=== PATIENT | male | born 1935 | race Hispanic/Latino ===

== ENCOUNTER 2019-07-31 23:55 | Emergency (ER) | payer OTHER ==
[2019-08-01] MEDS ORDERED: ORPHENADRINE CITRATE 30 MG/ML ML ONE (00:35)
[2019-08-01] MEDS ORDERED: KETOROLAC TROMETHAMINE 15MG/ML ONE (00:36)
[2019-08-01 00:50] LABS: WHITE BLOOD COUNT (AUTO) 10.6 K/uL (4.8-10.8)
[2019-08-01 00:56] LABS: BASOPHILS % (AUTO) 0.3 % (0.0-5.0); CREATININE 1.4 mg/dL (0.5-1.5); EOSINOPHILS % (AUTO) 2.4 % (0.0-8.0); HEMATOCRIT 28.9 % (42-54); LYMPHOCYTES % (AUTO) 18.9 % (21.0-51.0); MEAN CORPUSCULAR HGB CONC 34.4 g/dL (32.0-36.0); MEAN CORPUSCULAR VOLUME 96.1 fL (79-99); MONOCYTES % (AUTO) 11.1 % (3.0-13.0); NEUTROPHILS % (AUTO) 67.3 % (40.0-77.0); PLATELET COUNT (AUTO) 191 K/uL (130-400); POTASSIUM 3.5 mmol/L (3.5-5.1); RED CELL DISTRIBUTION WIDTH 13.6 % (11.0-15.5)
[2019-08-01] MEDS ORDERED: METHYLPREDNISOLONE SOD SUCC 125MG/2ML VIAL ONE (01:32)
== END 2019-08-01 01:48 | disposition home or self-care (01) ==
LOC: EDH 23:55
DX: J01.90 Acute sinusitis, unspecified (principal); M50.10 Cervical disc disorder with radiculopathy, unspecified cervical region; F43.23 Adjustment disorder with mixed anxiety and depressed mood; I10 Essential (primary) hypertension; E78.00 Pure hypercholesterolemia, unspecified; Z95.1 Presence of aortocoronary bypass graft
CPT/HCPCS: 36415; 70450; 72125; 80048; 85025; 96372; 96374; 96375; 99285; J1885; J2360; J2930

== ENCOUNTER 2019-12-06 08:20 | Emergency (ER) | payer OTHER ==
[2019-12-06 09:44] LABS: BASOPHILS % (AUTO) 0.4 % (0.0-5.0); EOSINOPHILS % (AUTO) 2.9 % (0.0-8.0); HEMATOCRIT 34.2 % (42-54); LYMPHOCYTES % (AUTO) 18.3 % (21.0-51.0); MEAN CORPUSCULAR HEMOGLOBIN 29.7 pg (27.0-33.0); MEAN CORPUSCULAR HGB CONC 32.7 g/dL (32.0-36.0); MEAN CORPUSCULAR VOLUME 90.7 fL (79-99); MONOCYTES % (AUTO) 8.5 % (3.0-13.0); NEUTROPHILS % (AUTO) 69.8 % (40.0-77.0); PLATELET COUNT (AUTO) 242 K/uL (130-400); RED BLOOD CELL COUNT(AUTO) 3.77 MIL/uL (4.50-6.20); WHITE BLOOD COUNT (AUTO) 8.4 K/uL (4.8-10.8)
[2019-12-06 09:54] LABS: CREATININE 1.2 mg/dL (0.5-1.5); POTASSIUM 3.3 mmol/L (3.5-5.1)
[2019-12-06 09:56] LABS: INR 1.03 (0.85-1.15); PROTHROMBIN TIME 10.8 SEC (9.6-11.6)
[2019-12-06 09:57] LABS: APPEARANCE,URINE Cloudy (CLEAR); BILIRUBIN,URINE Negative (NEGATIVE); COLOR,URINE Yellow (YELLOW); GLUCOSE, URINE (UA) Negative (NEGATIVE); KETONES,URINE Negative (NEGATIVE); LEUKOCYTE ESTERASE ,URINE Negative (NEGATIVE); NITRATE,URINE Negative (NEGATIVE); OCCULT BLOOD,URINE Moderate (NEGATIVE); PH,URINE 6.5 (5.0-8.0); PROTEIN,URINE POS 1+ mg/dL (NEGATIVE); UROBILINOGEN,URINE 0.2 mg/dL (0.2-1.0)
[2019-12-06 10:01] LABS: ALBUMIN 3.4 g/dL (3.5-5.0); BILIRUBIN,TOTAL 0.7 mg/dL (0.2-1.0)
[2019-12-06 10:01] LABS: BACTERIA,URINE Rare /HPF (None Seen); RBC,URINE 0-1 /HPF (0-1); SQUAMOUS EPITHELIAL CELL,UR Rare /HPF (0-2); WBC,URINE 0-1 /HPF (0-1)
[2019-12-06 10:14] LABS: B-TYPE NATRIURETIC PEPTIDE 161 pg/mL (0-100)
[2019-12-06] MEDS ORDERED: ACETAMINOPHEN 325 MG TAB ONE (10:22)
[2019-12-06] MEDS ORDERED: ONDANSETRON HCL 4 MG/2 ML VIAL ONE (10:22)
== END 2019-12-06 14:33 | disposition home or self-care (01) ==
LOC: EDH 08:20
DX: G44.209 Tension-type headache, unspecified, not intractable (principal); M62.838 Other muscle spasm; D32.9 Benign neoplasm of meninges, unspecified; E78.00 Pure hypercholesterolemia, unspecified; I10 Essential (primary) hypertension
CPT/HCPCS: 36415; 70450; 70496; 70498; 71045; 80053; 81001; 83880; 84484; 85025; 85610; 85730; 93005; 96374; 99285; J2405

== ENCOUNTER 2019-12-27 14:33 | Emergency (ER) | payer OTHER | END 2019-12-27 16:52 | disposition home or self-care (01) | LOC: EDH 14:33 | DX: S00.83XA Contusion of other part of head, initial encounter (principal); S80.02XA Contusion of left knee, initial encounter; S60.221A Contusion of right hand, initial encounter; M54.2 Cervicalgia; I10 Essential (primary) hypertension; E11.9 Type 2 diabetes mellitus without complications; I25.10 Atherosclerotic heart disease of native coronary artery without angina pectoris; E78.00 Pure hypercholesterolemia, unspecified; Z87.891 Personal history of nicotine dependence; Z79.899 Other long term (current) drug therapy; Z95.810 Presence of automatic (implantable) cardiac defibrillator; W01.0XXA Fall on same level from slipping, tripping and stumbling without subsequent striking against object, initial encounter; Y93.01 Activity, walking, marching and hiking; Y92.89 Other specified places as the place of occurrence of the external cause; Y99.8 Other external cause status | CPT/HCPCS: 70450; 72125; 73130; 73562 ==

== ENCOUNTER 2021-01-28 10:46 | Inpatient (IN) | payer OTHER ==
[~2021-01-28] VITALS: Ht 162.6 cm; Wt 82.9 kg
[2021-01-28] MEDS ORDERED: CEFTRIAXONE 1G VIAL ONE (11:18)
[2021-01-28] MEDS ORDERED: 0.9%NACL 100ML 100 ML IV ONE (11:18)
[2021-01-28] MEDS ORDERED: 0.9%NACL 1000ML 1,000 ML IV ONE (11:19)
[2021-01-28 11:21] LABS: BASOPHILS % (AUTO) 0.3 % (0.0-5.0); EOSINOPHILS % (AUTO) 2.7 % (0.0-8.0); LYMPHOCYTES % (AUTO) 18.9 % (21.0-51.0); MEAN CORPUSCULAR HEMOGLOBIN 31.6 pg (27.0-33.0); MEAN CORPUSCULAR HGB CONC 33.3 g/dL (32.0-36.0); MEAN CORPUSCULAR VOLUME 94.7 fL (79-99); MONOCYTES % (AUTO) 6.5 % (3.0-13.0); PLATELET COUNT (AUTO) 163 K/uL (130-400); RED BLOOD CELL COUNT(AUTO) 2.85 MIL/uL (4.50-6.20); RED CELL DISTRIBUTION WIDTH 13.2 % (11.0-15.5); WHITE BLOOD COUNT (AUTO) 7.8 K/uL (4.8-10.8)
[2021-01-28 11:40] LABS: INR 1.7 (0.85-1.15); PROTHROMBIN TIME 17.7 SEC (9.6-11.6)
[2021-01-28 11:42] LABS: PARTIAL THROMBOPLASTIN TIME 36.5 SEC (26.3-35.5)
[2021-01-28 11:52] LABS: CARBON DIOXIDE 28 mmol/L (21-32); CHLORIDE 102 mmol/L (101-111); CREATININE 1.5 mg/dL (0.5-1.5); GLOMERULAR FILTR. RATE CALC 47 mL/min (>60); GLUCOSE,RANDOM 357 mg/dL (70-105); POTASSIUM 3.1 mmol/L (3.5-5.1); SODIUM SERUM 137 mmol/L (136-145); UREA NITROGEN, BLOOD 17 mg/dL (7-18)
[2021-01-28 12:05] LABS: ALANINE AMINOTRANSFERASE 71 U/L (12-78); ALBUMIN 2.8 g/dL (3.5-5.0); ASPARTATE AMINOTRANSFERASE 29 U/L (10-37); BILIRUBIN,TOTAL 0.6 mg/dL (0.2-1.0); CREATINE KINASE, TOTAL 123 U/L (21-232); MYOGLOBIN 232 ng/mL (10-92); TOTAL PROTEIN, SERUM 7.2 g/dL (6.0-8.3); TROPONIN I < 0.04 ng/mL (0.00-0.06)
[2021-01-28 14:02] LABS: APPEARANCE,URINE Clear (CLEAR); BILIRUBIN,URINE Negative (NEGATIVE); COLOR,URINE Yellow (YELLOW); GLUCOSE, URINE (UA) >=1000 mg/dL (NEGATIVE); KETONES,URINE Negative (NEGATIVE); LEUKOCYTE ESTERASE ,URINE Negative (NEGATIVE); NITRATE,URINE Negative (NEGATIVE); OCCULT BLOOD,URINE Moderate (NEGATIVE); PH,URINE 6.5 (5.0-8.0); PROTEIN,URINE Trace mg/dL (NEGATIVE); UROBILINOGEN,URINE 0.2 mg/dL (0.2-1.0)
[2021-01-28] MEDS ORDERED: KCL 20 MEQ ERTAB PO ONE (14:09)
[2021-01-28 14:21] LABS: BACTERIA,URINE None Seen /HPF (None Seen); SQUAMOUS EPITHELIAL CELL,UR Rare /HPF (0-2); WBC,URINE 0-1 /HPF (0-1)
[2021-01-28] MEDS ORDERED: LIDOCAINE HCL-MPF 1% 2ML VIAL IV PRN ×2 (14:30)
[2021-01-28] MEDS ORDERED: ONDANSETRON 4MG INJ IVP PRN (14:30)
[2021-01-28] MEDS ORDERED: ACETAMINOPHEN 500 MG TABLET PO PRN (14:30)
[2021-01-28] MEDS ORDERED: ENOXAPARIN SODIUM 40 MG/0.4 ML SYRINGE SQ SCH (14:30)
[2021-01-28] MEDS ORDERED: ZOSYN 3.375GM+NS 50ML 50 ML IV SCH (14:30)
[2021-01-28] MEDS ORDERED: MAGNESIUM 2GM PREMIX 50ML 50 ML IV PRN (14:30)
[2021-01-28] MEDS ORDERED: POTASSIUM CHLORIDE 10% ELIXIR 20 MEQ/15 ML UDCUP PO PRN (14:30)
[2021-01-28] MEDS ORDERED: GLUCAGON 1MG KIT 1 MG ML IM PRN (14:30)
[2021-01-28] MEDS ORDERED: POTASSIUM CHLORIDE 20MEQ/100ML 100 ML IV PRN ×2 (14:30)
[2021-01-28] MEDS ORDERED: DEXTROSE 50%-WATER 50 ML DISP.SYRIN IV PRN (14:30)
[2021-01-28 22:28] VITALS: BP 172/83
[2021-01-28] MEDS: INSULIN HUMULIN R 100 UNIT/ML 3ML SQ SCH (22:30)
[2021-01-29] VITALS (8 sets, daily range): BP systolic 121–163; BP diastolic 65–87
[2021-01-29] MEDS ORDERED: DILT120C12 PO (01:26)
[2021-01-29] MEDS ORDERED: ROSU10TA22 PO (01:26)
[2021-01-29] MEDS ORDERED: MULT-1367 PO (01:26)
[2021-01-29] MEDS ORDERED: CARV40CR PO (01:26)
[2021-01-29] MEDS ORDERED: ACET-2743 PO (01:26)
[2021-01-29] MEDS ORDERED: OMEG-189 PO (01:26)
[2021-01-29] MEDS ORDERED: VITAD50000 PO (01:26)
[2021-01-29] MEDS ORDERED: RIVA20TA PO (01:26)
[2021-01-29] MEDS ORDERED: MEMA5TAB42 PO (01:26)
[2021-01-29] MEDS ORDERED: ENAL10TA63 PO (01:26)
[2021-01-29 04:51] LABS: MEAN CORPUSCULAR HEMOGLOBIN 30.4 pg (27.0-33.0); MEAN CORPUSCULAR HGB CONC 32.3 g/dL (32.0-36.0); MEAN CORPUSCULAR VOLUME 94.2 fL (79-99); RED BLOOD CELL COUNT(AUTO) 3.29 MIL/uL (4.50-6.20); RED CELL DISTRIBUTION WIDTH 13.2 % (11.0-15.5); WHITE BLOOD COUNT (AUTO) 8.5 K/uL (4.8-10.8)
[2021-01-29 05:15] LABS: ALBUMIN 2.5 g/dL (3.5-5.0); BILIRUBIN,TOTAL 0.4 mg/dL (0.2-1.0); CREATININE 1.2 mg/dL (0.5-1.5); TOTAL PROTEIN, SERUM 6.7 g/dL (6.0-8.3)
[2021-01-29 05:43] LABS: POTASSIUM 2.9 mmol/L (3.5-5.1)
[2021-01-29] MEDS: KCL 20 MEQ ERTAB PO PRN ×3 (05:59→18:47)
[2021-01-29] MEDS: INSULIN HUMULIN R 100 UNIT/ML 3ML SQ SCH ×4 (06:25→21:28)
[2021-01-29] MEDS: RIVAROXABAN 20 MG TABLET PO SCH (08:48)
[2021-01-29] MEDS: MEMANTINE HCL 5 MG TABLET PO SCH (08:48)
[2021-01-29] MEDS: DILTIAZEM 120MG SR CAP PO SCH (08:49)
[2021-01-29] MEDS: PANTOPRAZOLE 40 MG TAB DR PO SCH ×2 (08:49→09:00)
[2021-01-29] MEDS: ENALAPRIL MALEATE 10 MG TABLET PO SCH (08:49)
[2021-01-29] MEDS: CARVEDILOL 12.5 MG TABLET PO SCH ×2 (08:50→21:21)
[2021-01-29] MEDS: ZOSYN 3.375GM+NS 50ML 50 ML IV SCH ×2 (14:09→21:20)
[2021-01-29] MEDS ORDERED: ATORVASTATIN 20 MG TABLET PO SCH (21:00)
[2021-01-30 04:00] VITALS: BP 141/60
[2021-01-30 05:39] LABS: HEMATOCRIT 29.4 % (42-54); MEAN CORPUSCULAR HEMOGLOBIN 30.6 pg (27.0-33.0); MEAN CORPUSCULAR VOLUME 92.7 fL (79-99); RED BLOOD CELL COUNT(AUTO) 3.17 MIL/uL (4.50-6.20); RED CELL DISTRIBUTION WIDTH 13.3 % (11.0-15.5)
[2021-01-30 05:48] LABS: CREATININE 1.2 mg/dL (0.5-1.5); POTASSIUM 3.4 mmol/L (3.5-5.1)
[2021-01-30] MEDS: INSULIN HUMULIN R 100 UNIT/ML 3ML SQ SCH ×3 (06:08→17:26)
[2021-01-30] MEDS: ZOSYN 3.375GM+NS 50ML 50 ML IV SCH ×2 (06:10→14:00)
[2021-01-30] MEDS: KCL 20 MEQ ERTAB PO PRN (06:10)
[2021-01-30 07:00] VITALS: BP 155/74
[2021-01-30] MEDS: RIVAROXABAN 20 MG TABLET PO SCH (08:45)
[2021-01-30] MEDS: CARVEDILOL 12.5 MG TABLET PO SCH (08:46)
[2021-01-30] MEDS: MEMANTINE HCL 5 MG TABLET PO SCH (08:46)
[2021-01-30] MEDS: DILTIAZEM 120MG SR CAP PO SCH (08:46)
[2021-01-30] MEDS: PANTOPRAZOLE 40 MG TAB DR PO SCH (08:46)
[2021-01-30] MEDS: ENALAPRIL MALEATE 10 MG TABLET PO SCH (08:46)
[2021-01-30 11:30] VITALS: BP 158/77
[2021-01-30 16:10] VITALS: BP 160/75
== END 2021-01-30 18:40 | disposition home or self-care (01) | DRG 603 ==
LOC: EDH 10:46 → EDHIP 14:29 → OBSVTOIN 14:29 → 3CH 22:25
PROVIDERS: ADMIT Internal Medicine; ATTEND Internal Medicine
DX: L03.116 Cellulitis of left lower limb (principal); N18.30 Chronic kidney disease, stage 3 unspecified; I12.9 Hypertensive chronic kidney disease with stage 1 through stage 4 chronic kidney disease, or unspecified chronic kidney disease; E87.6 Hypokalemia; E78.5 Hyperlipidemia, unspecified; E11.22 Type 2 diabetes mellitus with diabetic chronic kidney disease; E11.65 Type 2 diabetes mellitus with hyperglycemia; D64.9 Anemia, unspecified; I25.10 Atherosclerotic heart disease of native coronary artery without angina pectoris; E78.00 Pure hypercholesterolemia, unspecified; Z79.01 Long term (current) use of anticoagulants; Z79.899 Other long term (current) drug therapy; Z95.0 Presence of cardiac pacemaker
CPT/HCPCS: 36415; 71045; 73600; 80048; 80053; 81001; 82550; 82948; 83605; 83874; 83880; 84145; 84484; 85025; 85027; 85610; 85730; 87040; 93005; 93971; G0378; J0696; J1815; J2543; J7030

== ENCOUNTER → 2022-02-17 | Outpatient (CLI) | payer OTHER ==
[~2022-02-17] MED LIST: ACET-2743 PO; CARV40CR PO; DILT120C12 PO; ENAL10TA63 PO; MEMA5TAB42 PO; MULT-1367 PO; OMEG-189 PO; RIVA20TA PO; ROSU10TA22 PO; VITAD50000 PO
[2022-02-17 12:28] LABS: ALBUMIN 3.5 g/dL (3.5-5.0); BILIRUBIN,TOTAL 0.7 mg/dL (0.2-1.0); CREATININE 1.3 mg/dL (0.5-1.5); POTASSIUM 3.8 mmol/L (3.5-5.1); TOTAL PROTEIN, SERUM 7.4 g/dL (6.0-8.3)
== END | disposition home or self-care (01) ==
LOC: LAB 08:28
PROVIDERS: ATTEND Internal Medicine Cardiovascular Disease
DX: I48.0 Paroxysmal atrial fibrillation (principal); D68.59 Other primary thrombophilia; E78.5 Hyperlipidemia, unspecified
CPT/HCPCS: 36415; 80053; 80061

== ENCOUNTER → 2022-04-19 | Outpatient (CLI) | payer OTHER ==
[2022-04-19 12:25] LABS: BASOPHILS % (AUTO) 0.3 % (0.0-5.0); EOSINOPHILS % (AUTO) 3.8 % (0.0-8.0); HEMATOCRIT 35.9 % (42-54); LYMPHOCYTES % (AUTO) 29.6 % (21.0-51.0); MEAN CORPUSCULAR VOLUME 96.8 fL (79-99); MONOCYTES % (AUTO) 7.9 % (3.0-13.0); NEUTROPHILS % (AUTO) 58.3 % (40.0-77.0); PLATELET COUNT (AUTO) 189 K/uL (130-400); RED BLOOD CELL COUNT(AUTO) 3.71 MIL/uL (4.50-6.20); RED CELL DISTRIBUTION WIDTH 14.4 % (11.0-15.5); WHITE BLOOD COUNT (AUTO) 6.9 K/uL (4.8-10.8)
== END | disposition home or self-care (01) ==
LOC: LAB 08:39
PROVIDERS: ATTEND Internal Medicine Cardiovascular Disease
DX: I42.9 Cardiomyopathy, unspecified (principal); I48.91 Unspecified atrial fibrillation; I10 Essential (primary) hypertension; D68.59 Other primary thrombophilia
CPT/HCPCS: 36415; 85025

== ENCOUNTER 2022-07-01 11:16 | Emergency (ER) | payer OTHER ==
[~2022-07-01] VITALS: Ht 157.5 cm; Wt 81.6 kg
[2022-07-01 11:37] LABS: BASOPHILS % (AUTO) 0.6 % (0.0-5.0); EOSINOPHILS % (AUTO) 2.6 % (0.0-8.0); HEMATOCRIT 31.5 % (42-54); MEAN CORPUSCULAR HEMOGLOBIN 31.6 pg (27.0-33.0); MEAN CORPUSCULAR HGB CONC 33.3 g/dL (32.0-36.0); MEAN CORPUSCULAR VOLUME 94.9 fL (79-99); MONOCYTES % (AUTO) 6.6 % (3.0-13.0); NEUTROPHILS % (AUTO) 69.9 % (40.0-77.0); PLATELET COUNT (AUTO) 173 K/uL (130-400); RED BLOOD CELL COUNT(AUTO) 3.32 MIL/uL (4.50-6.20); RED CELL DISTRIBUTION WIDTH 13.5 % (11.0-15.5)
[2022-07-01 11:51] LABS: INR 1.37 (0.85-1.15); PROTHROMBIN TIME 14.7 SEC (9.6-11.6)
[2022-07-01 11:53] LABS: CREATININE 1.3 mg/dL (0.5-1.5); PARTIAL THROMBOPLASTIN TIME 33.3 SEC (26.3-35.5); POTASSIUM 3.5 mmol/L (3.5-5.1)
[2022-07-01 11:57] LABS: ALBUMIN 3.4 g/dL (3.5-5.0); TOTAL PROTEIN, SERUM 6.9 g/dL (6.0-8.3)
[2022-07-01 15:00] VITALS: BP 126/74
== END 2022-07-01 15:46 | disposition home or self-care (01) ==
LOC: EDH 11:16
DX: S00.03XA Contusion of scalp, initial encounter (principal); S09.90XA Unspecified injury of head, initial encounter; E78.00 Pure hypercholesterolemia, unspecified; I10 Essential (primary) hypertension; Z79.899 Other long term (current) drug therapy; Z98.890 Other specified postprocedural states; W01.0XXA Fall on same level from slipping, tripping and stumbling without subsequent striking against object, initial encounter; Y93.89 Activity, other specified; Y92.89 Other specified places as the place of occurrence of the external cause; Y99.8 Other external cause status
CPT/HCPCS: 36415; 70450; 72125; 80053; 84484; 85025; 85610; 85730; 93005

== ENCOUNTER → 2022-07-20 | Outpatient (CLI) | payer OTHER ==
[2022-07-20 12:27] LABS: CREATININE 1.3 mg/dL (0.5-1.5); POTASSIUM 3.7 mmol/L (3.5-5.1)
== END | disposition home or self-care (01) ==
LOC: LAB 09:19
PROVIDERS: ATTEND Internal Medicine Cardiovascular Disease
DX: I48.92 Unspecified atrial flutter (principal); G47.33 Obstructive sleep apnea (adult) (pediatric); D68.59 Other primary thrombophilia
CPT/HCPCS: 36415; 80048

== ENCOUNTER → 2022-10-03 | Outpatient (CLI) | payer OTHER ==
[2022-10-03 12:52] LABS: CREATININE 1.1 mg/dL (0.5-1.5); POTASSIUM 3.9 mmol/L (3.5-5.1)
== END | disposition home or self-care (01) ==
LOC: LAB 10:34
PROVIDERS: ATTEND Internal Medicine Cardiovascular Disease
DX: D68.59 Other primary thrombophilia (principal); I48.92 Unspecified atrial flutter; G47.33 Obstructive sleep apnea (adult) (pediatric)
CPT/HCPCS: 36415; 80048

== ENCOUNTER → 2022-11-08 | Outpatient (CLI) | payer OTHER | END | disposition home or self-care (01) | LOC: LAB 09:16 | PROVIDERS: ATTEND Internal Medicine Cardiovascular Disease | DX: I47.29 Other ventricular tachycardia (principal); E11.59 Type 2 diabetes mellitus with other circulatory complications | CPT/HCPCS: 36415; 83735 ==

== ENCOUNTER → 2022-12-06 | Outpatient (CLI) | payer OTHER ==
[2022-12-06 13:13] LABS: CREATININE 1.4 mg/dL (0.5-1.5); POTASSIUM 3.5 mmol/L (3.5-5.1)
== END | disposition home or self-care (01) ==
LOC: LAB 09:16
PROVIDERS: ATTEND Internal Medicine Cardiovascular Disease
DX: I10 Essential (primary) hypertension (principal)
CPT/HCPCS: 36415; 80048

== ENCOUNTER → 2022-12-22 | Outpatient (CLI) | payer OTHER ==
[2022-12-22 13:07] LABS: CREATININE 1.4 mg/dL (0.5-1.5); POTASSIUM 3.7 mmol/L (3.5-5.1)
== END | disposition home or self-care (01) ==
LOC: LAB 08:45
PROVIDERS: ATTEND Internal Medicine Cardiovascular Disease
DX: I10 Essential (primary) hypertension (principal)
CPT/HCPCS: 36415; 80048

== ENCOUNTER 2023-03-10 16:34 | Inpatient (IN) | payer OTHER, MEDICARE ==
[~2023-03-10] VITALS: Ht 160 cm; Wt 73.7 kg
[2023-03-10 17:05] LABS: BASOPHILS % (AUTO) 0.1 % (0.0-5.0); HEMATOCRIT 33.7 % (42-54); LYMPHOCYTES % (AUTO) 2.3 % (21.0-51.0); MEAN CORPUSCULAR HEMOGLOBIN 31.7 pg (27.0-33.0); MEAN CORPUSCULAR HGB CONC 33.5 g/dL (32.0-36.0); MEAN CORPUSCULAR VOLUME 94.7 fL (79-99); MONOCYTES % (AUTO) 2.8 % (3.0-13.0); NEUTROPHILS % (AUTO) 94.2 % (40.0-77.0); PLATELET COUNT (AUTO) 164 K/uL (130-400); RED BLOOD CELL COUNT(AUTO) 3.56 MIL/uL (4.50-6.20); RED CELL DISTRIBUTION WIDTH 14.7 % (11.0-15.5)
[2023-03-10 17:31] LABS: CREATININE 1.5 mg/dL (0.5-1.5); POTASSIUM 3.4 mmol/L (3.5-5.1)
[2023-03-10 17:35] LABS: ALBUMIN 3.7 g/dL (3.5-5.0); TOTAL PROTEIN, SERUM 7.2 g/dL (6.0-8.3)
[2023-03-10 17:42] LABS: B-TYPE NATRIURETIC PEPTIDE 1070 pg/mL (0-100)
[2023-03-10] MEDS ORDERED: CEFTRIAXONE 2GM VIAL IVPB ONE (18:00)
[2023-03-10] MEDS ORDERED: ACETAMINOPHEN 325 MG TAB PO ONE (18:00)
[2023-03-10] MEDS ORDERED: METO-391 PO (18:10)
[2023-03-10] MEDS ORDERED: SACU1TAB PO (18:10)
[2023-03-10] MEDS ORDERED: HYDROCODONE/ACETAMINOPHEN 5/325 MG TAB PO PRN (18:30)
[2023-03-10] MEDS ORDERED: ALBUTEROL 0.083% 2.5 MG/3 ML INH IH PRN (18:30)
[2023-03-10] MEDS ORDERED: ONDANSETRON 4MG INJ IVP PRN (18:30)
[2023-03-10] MEDS ORDERED: LACTULOSE 20 GM/30 ML UDCUP PO PRN (18:30)
[2023-03-10] MEDS: INSULIN HUMULIN R 100 UNIT/ML 3ML SQ SCH (20:54)
[2023-03-10 22:35] LABS: APPEARANCE,URINE CLEAR (CLEAR); BILIRUBIN,URINE NEGATIVE (NEGATIVE); COLOR,URINE YELLOW (YELLOW); GLUCOSE, URINE (UA) 70 mg/dL (NEGATIVE); KETONES,URINE 5 mg/dL (NEGATIVE); LEUKOCYTE ESTERASE ,URINE NEGATIVE Leu/uL (NEGATIVE); NITRATE,URINE NEGATIVE (NEGATIVE); OCCULT BLOOD,URINE LARGE (NEGATIVE); PH,URINE 5.5 (5.0-8.0); PROTEIN,URINE 200 mg/dL (NEGATIVE); UROBILINOGEN,URINE 0.2 mg/dL (0.2-1.0)
[2023-03-10 23:04] LABS: BACTERIA,URINE None Seen /HPF (None Seen)
[2023-03-10 23:05] LABS: MUCUS,URINE Rare LPF (None Seen); SQUAMOUS EPITHELIAL CELL,UR Rare /HPF (0-2)
[2023-03-11] VITALS (7 sets, daily range): BP systolic 116–172; BP diastolic 44–114
[2023-03-11] MEDS: CLINDAMYCIN IVPB 300MG/50ML 50 ML IV SCH ×4 (00:08→18:50)
[2023-03-11] MEDS: INSULIN HUMULIN R 100 UNIT/ML 3ML SQ SCH ×4 (05:22→20:16)
[2023-03-11] MEDS: ACETAMINOPHEN 325 MG TAB PO PRN ×3 (08:42→20:09)
[2023-03-11] MEDS: SACUBITRIL/VALSARTAN 1 EACH TABLET PO SCH ×2 (08:42→20:08)
[2023-03-11] MEDS: ENOXAPARIN SODIUM 40 MG/0.4 ML SYRINGE SQ SCH ×3 (08:43→20:16)
[2023-03-11] MEDS ORDERED: ENOXAPARIN SODIUM 40 MG/0.4 ML SYRINGE SQ SCH (09:00)
[2023-03-11] MEDS: ATORVASTATIN 20 MG TABLET PO SCH (20:08)
[2023-03-12] VITALS (7 sets, daily range): BP systolic 139–174; BP diastolic 50–74
[2023-03-12] MEDS: CLINDAMYCIN IVPB 300MG/50ML 50 ML IV SCH ×2 (00:09→05:29)
[2023-03-12] MEDS: ACETAMINOPHEN 325 MG TAB PO PRN ×2 (03:42→12:10)
[2023-03-12 04:31] LABS: HEMATOCRIT 32.8 % (42-54); MEAN CORPUSCULAR HEMOGLOBIN 31.4 pg (27.0-33.0); MEAN CORPUSCULAR HGB CONC 32.6 g/dL (32.0-36.0); MEAN CORPUSCULAR VOLUME 96.2 fL (79-99); RED BLOOD CELL COUNT(AUTO) 3.41 MIL/uL (4.50-6.20); RED CELL DISTRIBUTION WIDTH 14.8 % (11.0-15.5)
[2023-03-12 04:59] LABS: CREATININE 1.8 mg/dL (0.5-1.5); POTASSIUM 3.8 mmol/L (3.5-5.1)
[2023-03-12] MEDS: INSULIN HUMULIN R 100 UNIT/ML 3ML SQ SCH ×4 (05:33→21:05)
[2023-03-12] MEDS: ENOXAPARIN SODIUM 40 MG/0.4 ML SYRINGE SQ SCH ×2 (10:41→20:35)
[2023-03-12] MEDS: FAMOTIDINE 20MG VIAL IV SCH (10:41)
[2023-03-12] MEDS: SACUBITRIL/VALSARTAN 1 EACH TABLET PO SCH ×2 (10:41→20:31)
[2023-03-12] MEDS: ZOSYN 3.375GM +NS 50ML IVPB SCH ×2 (12:11→22:31)
[2023-03-12] MEDS ORDERED: SODIUM CHLORIDE 3% FOR INHALATION 4 ML/AMP VIAL.NEB IH ONE (14:00)
[2023-03-12] MEDS: ATORVASTATIN 20 MG TABLET PO SCH (20:31)
[2023-03-12] MEDS: METOPROLOL TARTRATE 25 MG TAB PO SCH (20:31)
[2023-03-13] MEDS ORDERED: LORAZEPAM 2 MG/ML 1 ML VIAL IVP ONE ×2 (03:30→07:00)
[2023-03-13 03:34] VITALS: BP 145/52
[2023-03-13 04:10] LABS: HEMATOCRIT 30.4 % (42-54); MEAN CORPUSCULAR HGB CONC 33.9 g/dL (32.0-36.0); MEAN CORPUSCULAR VOLUME 94.4 fL (79-99); RED BLOOD CELL COUNT(AUTO) 3.22 MIL/uL (4.50-6.20); RED CELL DISTRIBUTION WIDTH 14.5 % (11.0-15.5); WHITE BLOOD COUNT (AUTO) 12.2 K/uL (4.8-10.8)
[2023-03-13 04:24] LABS: CREATININE 1.5 mg/dL (0.5-1.5)
[2023-03-13 04:41] LABS: POTASSIUM 2.8 mmol/L (3.5-5.1)
[2023-03-13] MEDS ORDERED: KCL 20 MEQ ERTAB PO ONE (05:00)
[2023-03-13] MEDS: INSULIN HUMULIN R 100 UNIT/ML 3ML SQ SCH ×4 (05:36→20:26)
[2023-03-13 07:30] VITALS: BP 147/44
[2023-03-13] MEDS: METOPROLOL TARTRATE 25 MG TAB PO SCH ×3 (09:00→20:29)
[2023-03-13] MEDS: SACUBITRIL/VALSARTAN 1 EACH TABLET PO SCH ×2 (09:43→20:29)
[2023-03-13] MEDS: FAMOTIDINE 20MG VIAL IV SCH (09:43)
[2023-03-13] MEDS: ASPIRIN 81 MG EC TAB PO SCH (09:43)
[2023-03-13] MEDS: ENOXAPARIN SODIUM 40 MG/0.4 ML SYRINGE SQ SCH ×2 (09:44→20:29)
[2023-03-13] MEDS: ZOSYN 3.375GM +NS 50ML IVPB SCH (10:06)
[2023-03-13 11:30] VITALS: BP 160/56
[2023-03-13 16:00] VITALS: BP 137/50
[2023-03-13 19:14] VITALS: BP 166/69
[2023-03-13] MEDS: ATORVASTATIN 20 MG TABLET PO SCH (20:29)
[2023-03-13 23:46] VITALS: BP 162/61
[2023-03-14 03:41] VITALS: BP 175/66
[2023-03-14 05:09] LABS: HEMATOCRIT 35.6 % (42-54); MEAN CORPUSCULAR HEMOGLOBIN 30.8 pg (27.0-33.0); MEAN CORPUSCULAR HGB CONC 32.3 g/dL (32.0-36.0); MEAN CORPUSCULAR VOLUME 95.4 fL (79-99); RED BLOOD CELL COUNT(AUTO) 3.73 MIL/uL (4.50-6.20); RED CELL DISTRIBUTION WIDTH 14.6 % (11.0-15.5); WHITE BLOOD COUNT (AUTO) 8.2 K/uL (4.8-10.8)
[2023-03-14 05:35] LABS: CREATININE 1.4 mg/dL (0.5-1.5); MAGNESIUM 2.2 mg/dL (1.80-2.40)
[2023-03-14 05:36] LABS: POTASSIUM 2.7 mmol/L (3.5-5.1)
[2023-03-14] MEDS: INSULIN HUMULIN R 100 UNIT/ML 3ML SQ SCH ×4 (05:36→20:58)
[2023-03-14] MEDS: KCL 20 MEQ ERTAB PO PRN ×2 (05:56→22:47)
[2023-03-14] MEDS: POTASSIUM CHLORIDE 20MEQ/100ML 100 ML IV PRN ×2 (07:34→10:32)
[2023-03-14] MEDS: ASPIRIN 81 MG EC TAB PO SCH (07:34)
[2023-03-14] MEDS: FAMOTIDINE 20MG VIAL IV SCH (07:34)
[2023-03-14] MEDS: METOPROLOL TARTRATE 25 MG TAB PO SCH ×2 (07:35→20:30)
[2023-03-14] MEDS: SACUBITRIL/VALSARTAN 1 EACH TABLET PO SCH ×2 (07:35→20:30)
[2023-03-14 08:17] VITALS: BP 150/52
[2023-03-14] MEDS: ZOSYN 3.375GM +NS 50ML IVPB SCH ×3 (10:31→20:33)
[2023-03-14] MEDS: ENOXAPARIN SODIUM 40 MG/0.4 ML SYRINGE SQ SCH ×2 (10:32→20:33)
[2023-03-14 16:25] VITALS: BP 161/64
[2023-03-14 19:00] VITALS: BP 187/80
[2023-03-14] MEDS: ATORVASTATIN 20 MG TABLET PO SCH (20:30)
[2023-03-14 21:47] VITALS: BP 167/84
[2023-03-14] MEDS: HYDRALAZINE 20MG/ML VIAL IV PRN (22:05)
[2023-03-14 22:28] LABS: MAGNESIUM 2.2 mg/dL (1.80-2.40); POTASSIUM 3.2 mmol/L (3.5-5.1)
[2023-03-14 22:57] VITALS: BP 145/58
[2023-03-15] VITALS (11 sets, daily range): BP systolic 132–171; BP diastolic 44–89
[2023-03-15] MEDS: KCL 20 MEQ ERTAB PO PRN ×2 (00:24→06:11)
[2023-03-15 04:41] LABS: HEMATOCRIT 34.5 % (42-54); MEAN CORPUSCULAR HEMOGLOBIN 31.1 pg (27.0-33.0); RED BLOOD CELL COUNT(AUTO) 3.67 MIL/uL (4.50-6.20); RED CELL DISTRIBUTION WIDTH 14.5 % (11.0-15.5); WHITE BLOOD COUNT (AUTO) 5.1 K/uL (4.8-10.8)
[2023-03-15 04:51] LABS: CREATININE 1.2 mg/dL (0.5-1.5); POTASSIUM 3.4 mmol/L (3.5-5.1)
[2023-03-15 04:54] LABS: INR 1.08 (0.85-1.15); PROTHROMBIN TIME 11.7 SEC (9.6-11.6)
[2023-03-15 04:55] LABS: PARTIAL THROMBOPLASTIN TIME 32.3 SEC (26.3-35.5)
[2023-03-15] MEDS: INSULIN HUMULIN R 100 UNIT/ML 3ML SQ SCH ×4 (06:13→20:35)
[2023-03-15] MEDS: FAMOTIDINE 20MG VIAL IV SCH (09:42)
[2023-03-15] MEDS: SACUBITRIL/VALSARTAN 1 EACH TABLET PO SCH ×2 (09:42→20:41)
[2023-03-15] MEDS: ENOXAPARIN SODIUM 40 MG/0.4 ML SYRINGE SQ SCH ×2 (09:42→20:42)
[2023-03-15] MEDS: ASPIRIN 81 MG EC TAB PO SCH (09:42)
[2023-03-15] MEDS: METOPROLOL TARTRATE 25 MG TAB PO SCH ×2 (09:42→20:42)
[2023-03-15] MEDS: ZOSYN 3.375GM +NS 50ML IVPB SCH ×2 (11:28→23:42)
[2023-03-15] MEDS: HYDRALAZINE 20MG/ML VIAL IV PRN (17:07)
[2023-03-15] MEDS: POTASSIUM CHLORIDE 10% ELIXIR 20 MEQ/15 ML UDCUP PO PRN (17:08)
[2023-03-15] MEDS: ATORVASTATIN 20 MG TABLET PO SCH (20:41)
[2023-03-16] VITALS (8 sets, daily range): BP systolic 105–171; BP diastolic 64–82
[2023-03-16 05:51] LABS: CREATININE 1.1 mg/dL (0.5-1.5); POTASSIUM 3.3 mmol/L (3.5-5.1)
[2023-03-16 05:52] LABS: BASOPHILS % (AUTO) 0.3 % (0.0-5.0); HEMATOCRIT 32.7 % (42-54); LYMPHOCYTES % (AUTO) 24.1 % (21.0-51.0); MEAN CORPUSCULAR HEMOGLOBIN 31.4 pg (27.0-33.0); MEAN CORPUSCULAR HGB CONC 33.6 g/dL (32.0-36.0); MEAN CORPUSCULAR VOLUME 93.4 fL (79-99); MONOCYTES % (AUTO) 9.4 % (3.0-13.0); PLATELET COUNT (AUTO) 194 K/uL (130-400); RED CELL DISTRIBUTION WIDTH 14.7 % (11.0-15.5); WHITE BLOOD COUNT (AUTO) 6.5 K/uL (4.8-10.8)
[2023-03-16] MEDS: INSULIN HUMULIN R 100 UNIT/ML 3ML SQ SCH ×4 (06:51→22:46)
[2023-03-16] MEDS: METOPROLOL TARTRATE 25 MG TAB PO SCH ×2 (09:40→22:20)
[2023-03-16] MEDS: ASPIRIN 81 MG EC TAB PO SCH (09:40)
[2023-03-16] MEDS: SACUBITRIL/VALSARTAN 1 EACH TABLET PO SCH ×2 (09:40→22:20)
[2023-03-16] MEDS: FAMOTIDINE 20MG VIAL IV SCH (09:40)
[2023-03-16] MEDS: KCL 20 MEQ ERTAB PO PRN ×2 (09:41→16:35)
[2023-03-16] MEDS: ENOXAPARIN SODIUM 40 MG/0.4 ML SYRINGE SQ SCH ×2 (09:41→22:21)
[2023-03-16] MEDS: HYDRALAZINE 20MG/ML VIAL IV PRN (09:46)
[2023-03-16] MEDS: ZOSYN 3.375GM +NS 50ML IVPB SCH ×2 (10:55→22:22)
[2023-03-16] MEDS ORDERED: METOPROLOL SUCCINATE 50 MG TAB.SR.24H PO SCH (11:01)
[2023-03-16] MEDS: DILTIAZEM 120MG SR CAP PO SCH (12:15)
[2023-03-16] MEDS: ACETAMINOPHEN 325 MG TAB PO PRN (16:34)
[2023-03-16] MEDS: ATORVASTATIN 20 MG TABLET PO SCH (22:20)
[2023-03-17 04:00] VITALS: BP 157/66
[2023-03-17 04:15] LABS: HEMATOCRIT 33.1 % (42-54); MEAN CORPUSCULAR HEMOGLOBIN 31.3 pg (27.0-33.0); MEAN CORPUSCULAR HGB CONC 33.2 g/dL (32.0-36.0); RED BLOOD CELL COUNT(AUTO) 3.52 MIL/uL (4.50-6.20); RED CELL DISTRIBUTION WIDTH 14.6 % (11.0-15.5); WHITE BLOOD COUNT (AUTO) 9.7 K/uL (4.8-10.8)
[2023-03-17 04:46] LABS: CREATININE 1.1 mg/dL (0.5-1.5); MAGNESIUM 1.9 mg/dL (1.80-2.40); POTASSIUM 3.2 mmol/L (3.5-5.1)
[2023-03-17] MEDS: INSULIN HUMULIN R 100 UNIT/ML 3ML SQ SCH ×4 (05:35→21:43)
[2023-03-17] MEDS: POTASSIUM CHLORIDE 20MEQ/100ML 100 ML IV PRN (05:44)
[2023-03-17 07:30] VITALS: BP 133/72
[2023-03-17] MEDS: SACUBITRIL/VALSARTAN 1 EACH TABLET PO SCH ×2 (09:00→21:43)
[2023-03-17] MEDS: DILTIAZEM 120MG SR CAP PO SCH (09:00)
[2023-03-17] MEDS: ENOXAPARIN SODIUM 40 MG/0.4 ML SYRINGE SQ SCH ×2 (09:00→21:41)
[2023-03-17] MEDS: ASPIRIN 81 MG EC TAB PO SCH (09:00)
[2023-03-17] MEDS: FAMOTIDINE 20MG VIAL IV SCH (09:32)
[2023-03-17 11:30] VITALS: BP 159/77
[2023-03-17] MEDS: ZOSYN 3.375GM +NS 50ML IVPB SCH ×2 (11:50→22:57)
[2023-03-17 15:30] VITALS: BP 156/76
[2023-03-17] MEDS: POTASSIUM CHLORIDE 10% ELIXIR 20 MEQ/15 ML UDCUP PO PRN (17:09)
[2023-03-17] MEDS: IPRATROPIUM/ALBUTEROL SULFATE 3 ML SOLUTION IH SCH ×2 (18:25→23:42)
[2023-03-17 20:00] VITALS: BP_SYST 74
[2023-03-17] MEDS: ATORVASTATIN 20 MG TABLET PO SCH (21:44)
[2023-03-18] VITALS: BP 142/76
[2023-03-18 04:00] VITALS: BP 143/68
[2023-03-18] MEDS: IPRATROPIUM/ALBUTEROL SULFATE 3 ML SOLUTION IH SCH ×3 (06:00→19:19)
[2023-03-18] MEDS: INSULIN HUMULIN R 100 UNIT/ML 3ML SQ SCH ×4 (06:25→21:33)
[2023-03-18 07:30] VITALS: BP 140/84
[2023-03-18] MEDS ORDERED: NITROGLYCERIN 0.4 MG SL TAB SL PRN (09:00)
[2023-03-18] MEDS: SACUBITRIL/VALSARTAN 1 EACH TABLET PO SCH ×2 (09:43→21:33)
[2023-03-18] MEDS: DILTIAZEM 120MG SR CAP PO SCH (09:43)
[2023-03-18] MEDS: FAMOTIDINE 20MG VIAL IV SCH (09:43)
[2023-03-18] MEDS: ASPIRIN 81 MG EC TAB PO SCH (09:43)
[2023-03-18] MEDS: ENOXAPARIN SODIUM 40 MG/0.4 ML SYRINGE SQ SCH ×2 (09:44→21:33)
[2023-03-18 11:30] VITALS: BP 160/78
[2023-03-18] MEDS: ZOSYN 3.375GM +NS 50ML IVPB SCH ×2 (12:12→23:07)
[2023-03-18 15:30] VITALS: BP 130/73
[2023-03-18 20:00] VITALS: BP 145/66
[2023-03-18] MEDS: ATORVASTATIN 20 MG TABLET PO SCH (21:33)
[2023-03-19] VITALS: BP 139/69
[2023-03-19 04:00] VITALS: BP 131/71
[2023-03-19 04:34] LABS: BASOPHILS % (AUTO) 0.2 % (0.0-5.0); EOSINOPHILS % (AUTO) 0.3 % (0.0-8.0); HEMATOCRIT 31.8 % (42-54); LYMPHOCYTES % (AUTO) 11.2 % (21.0-51.0); MEAN CORPUSCULAR HEMOGLOBIN 30.6 pg (27.0-33.0); MEAN CORPUSCULAR HGB CONC 32.7 g/dL (32.0-36.0); MEAN CORPUSCULAR VOLUME 93.5 fL (79-99); NEUTROPHILS % (AUTO) 78.7 % (40.0-77.0); PLATELET COUNT (AUTO) 275 K/uL (130-400); RED CELL DISTRIBUTION WIDTH 14.6 % (11.0-15.5); WHITE BLOOD COUNT (AUTO) 8.9 K/uL (4.8-10.8)
[2023-03-19 04:50] LABS: CREATININE 1.2 mg/dL (0.5-1.5); POTASSIUM 3.1 mmol/L (3.5-5.1)
[2023-03-19] MEDS: KCL 20 MEQ ERTAB PO PRN ×3 (05:12→10:07)
[2023-03-19] MEDS: IPRATROPIUM/ALBUTEROL SULFATE 3 ML SOLUTION IH SCH ×5 (06:00→17:26)
[2023-03-19] MEDS: INSULIN HUMULIN R 100 UNIT/ML 3ML SQ SCH ×4 (07:01→21:17)
[2023-03-19 07:30] VITALS: BP 127/80
[2023-03-19] MEDS: FAMOTIDINE 20MG VIAL IV SCH (09:41)
[2023-03-19] MEDS: METOPROLOL SUCCINATE 50 MG TAB.SR.24H PO SCH (09:41)
[2023-03-19] MEDS: ENOXAPARIN SODIUM 40 MG/0.4 ML SYRINGE SQ SCH ×2 (09:41→20:12)
[2023-03-19] MEDS: DILTIAZEM 120MG SR CAP PO SCH (09:42)
[2023-03-19] MEDS: ASPIRIN 81 MG EC TAB PO SCH (09:42)
[2023-03-19] MEDS: 0.9%NACL 1000ML 1,000 ML IV SCH ×3 (09:42→22:55)
[2023-03-19] MEDS: SACUBITRIL/VALSARTAN 1 EACH TABLET PO SCH ×2 (09:42→20:11)
[2023-03-19 11:30] VITALS: BP 131/83
[2023-03-19] MEDS: ZOSYN 3.375GM +NS 50ML IVPB SCH ×2 (12:26→23:08)
[2023-03-19 17:35] VITALS: BP 151/75
[2023-03-19 20:00] VITALS: BP 145/69
[2023-03-19] MEDS: ATORVASTATIN 20 MG TABLET PO SCH (20:11)
[2023-03-20] VITALS: BP 121/63
[2023-03-20] MEDS: MEROPENEM 1 GM VIAL IVPB SCH ×3 (00:17→16:35)
[2023-03-20] MEDS: LINEZOLID 600 MG/ISO-OSM 300 ML IV SCH ×3 (00:19→20:15)
[2023-03-20] MEDS: DOXYCYCLINE 100MG+NS 250ML IV SCH ×3 (01:07→22:29)
[2023-03-20 04:00] VITALS: BP 141/72
[2023-03-20 04:31] LABS: BASOPHILS % (AUTO) 0.1 % (0.0-5.0); EOSINOPHILS % (AUTO) 0.3 % (0.0-8.0); HEMATOCRIT 29.7 % (42-54); MEAN CORPUSCULAR HEMOGLOBIN 30.9 pg (27.0-33.0); MEAN CORPUSCULAR VOLUME 93.7 fL (79-99); MONOCYTES % (AUTO) 9.8 % (3.0-13.0); NEUTROPHILS % (AUTO) 76.8 % (40.0-77.0); PLATELET COUNT (AUTO) 273 K/uL (130-400); RED BLOOD CELL COUNT(AUTO) 3.17 MIL/uL (4.50-6.20); RED CELL DISTRIBUTION WIDTH 14.6 % (11.0-15.5); WHITE BLOOD COUNT (AUTO) 9.4 K/uL (4.8-10.8)
[2023-03-20 04:42] LABS: INR 1.23 (0.85-1.15); PROTHROMBIN TIME 13.3 SEC (9.6-11.6)
[2023-03-20 04:43] LABS: PARTIAL THROMBOPLASTIN TIME 33.5 SEC (26.3-35.5)
[2023-03-20 04:51] LABS: CREATININE 1.2 mg/dL (0.5-1.5)
[2023-03-20 04:57] LABS: POTASSIUM 2.7 mmol/L (3.5-5.1)
[2023-03-20] MEDS: POTASSIUM CHLORIDE 20MEQ/100ML 100 ML IV PRN ×2 (05:05→07:06)
[2023-03-20] MEDS: INSULIN HUMULIN R 100 UNIT/ML 3ML SQ SCH ×4 (05:58→22:34)
[2023-03-20] MEDS: IPRATROPIUM/ALBUTEROL SULFATE 3 ML SOLUTION IH SCH ×3 (06:40→18:52)
[2023-03-20 08:00] VITALS: BP 148/78
[2023-03-20] MEDS: METOPROLOL SUCCINATE 50 MG TAB.SR.24H PO SCH (08:10)
[2023-03-20] MEDS: DILTIAZEM 120MG SR CAP PO SCH (08:10)
[2023-03-20] MEDS: FAMOTIDINE 20MG VIAL IV SCH (08:10)
[2023-03-20] MEDS: SACUBITRIL/VALSARTAN 1 EACH TABLET PO SCH ×2 (08:10→20:12)
[2023-03-20] MEDS: ENOXAPARIN SODIUM 40 MG/0.4 ML SYRINGE SQ SCH ×2 (08:11→20:26)
[2023-03-20] MEDS: ASPIRIN 81 MG EC TAB PO SCH (08:12)
[2023-03-20 11:42] VITALS: BP 128/75
[2023-03-20] MEDS: KCL 20 MEQ ERTAB PO SCH ×3 (12:14→20:13)
[2023-03-20 15:58] VITALS: BP 155/89
[2023-03-20] MEDS: 0.9%NACL 1000ML 1,000 ML IV SCH (16:37)
[2023-03-20 18:45] VITALS: BP 137/65
[2023-03-20] MEDS: ATORVASTATIN 20 MG TABLET PO SCH (20:12)
[2023-03-21] VITALS (7 sets, daily range): BP systolic 120–150; BP diastolic 59–92
[2023-03-21] MEDS: IPRATROPIUM/ALBUTEROL SULFATE 3 ML SOLUTION IH SCH ×5 (00:02→23:33)
[2023-03-21] MEDS: MEROPENEM 1 GM VIAL IVPB SCH ×4 (00:56→23:49)
[2023-03-21] MEDS: 0.9%NACL 1000ML 1,000 ML IV SCH ×3 (05:37→21:00)
[2023-03-21 05:55] LABS: BASOPHILS % (AUTO) 0.2 % (0.0-5.0); EOSINOPHILS % (AUTO) 0.7 % (0.0-8.0); HEMATOCRIT 29.3 % (42-54); LYMPHOCYTES % (AUTO) 16.3 % (21.0-51.0); MEAN CORPUSCULAR HEMOGLOBIN 30.5 pg (27.0-33.0); MEAN CORPUSCULAR HGB CONC 32.4 g/dL (32.0-36.0); MEAN CORPUSCULAR VOLUME 94.2 fL (79-99); MONOCYTES % (AUTO) 9.3 % (3.0-13.0); NEUTROPHILS % (AUTO) 73.1 % (40.0-77.0); PLATELET COUNT (AUTO) 288 K/uL (130-400); RED BLOOD CELL COUNT(AUTO) 3.11 MIL/uL (4.50-6.20); RED CELL DISTRIBUTION WIDTH 14.6 % (11.0-15.5); WHITE BLOOD COUNT (AUTO) 8.3 K/uL (4.8-10.8)
[2023-03-21 05:56] LABS: CREATININE 1.2 mg/dL (0.5-1.5); MAGNESIUM 1.6 mg/dL (1.80-2.40); POTASSIUM 3.4 mmol/L (3.5-5.1)
[2023-03-21] MEDS: POTASSIUM CHLORIDE 20MEQ/100ML 100 ML IV PRN (06:46)
[2023-03-21] MEDS: INSULIN HUMULIN R 100 UNIT/ML 3ML SQ SCH ×4 (06:57→21:18)
[2023-03-21] MEDS ORDERED: MAGNESIUM 4GM PREMIX 100ML 100 ML IV PRN (08:00)
[2023-03-21] MEDS ORDERED: KCL 20 MEQ ERTAB PO SCH (08:00)
[2023-03-21] MEDS ORDERED: CLOPIDOGREL 300MG TAB PO SCH (08:00)
[2023-03-21] MEDS ORDERED: ASPIRIN 325MG EC TAB PO SCH (08:00)
[2023-03-21] MEDS: ASPIRIN 81 MG EC TAB PO SCH (08:38)
[2023-03-21] MEDS: FAMOTIDINE 20MG VIAL IV SCH (08:38)
[2023-03-21] MEDS: SACUBITRIL/VALSARTAN 1 EACH TABLET PO SCH ×2 (08:39→20:13)
[2023-03-21] MEDS: DILTIAZEM 120MG SR CAP PO SCH (08:39)
[2023-03-21] MEDS: METOPROLOL SUCCINATE 50 MG TAB.SR.24H PO SCH (08:39)
[2023-03-21] MEDS ORDERED: MAGNESIUM 2GM PREMIX 50ML 50 ML IV SCH (09:30)
[2023-03-21] MEDS: DOXYCYCLINE 100MG+NS 250ML IV SCH ×2 (12:45→23:49)
[2023-03-21] MEDS ORDERED: LIDOCAINE HCL 400MG/20ML VIAL ONE (13:02)
[2023-03-21] MEDS ORDERED: NITROGLYCERIN 50MG VIAL ONE (13:03)
[2023-03-21] MEDS ORDERED: IODIXANOL 320 MG/ML 100 ML VIAL ONE (13:03)
[2023-03-21] MEDS ORDERED: FENTANYL CITRATE PF 50 MCG/1 ML 2ML VIAL ONE (13:03)
[2023-03-21] MEDS ORDERED: MIDAZOLAM HCL 1 MG/ML 2ML VIAL ONE (13:03)
[2023-03-21] MEDS ORDERED: HEPARIN 10,000 UNIT/10ML (1,000 UNIT/ML) VIAL ONE (13:03)
[2023-03-21] MEDS: LINEZOLID 600 MG/ISO-OSM 300 ML IV SCH (16:51)
[2023-03-21] MEDS: ATORVASTATIN 20 MG TABLET PO SCH (20:13)
[2023-03-22] VITALS (12 sets, daily range): BP systolic 114–159; BP diastolic 63–96
[2023-03-22] MEDS: LINEZOLID 600 MG/ISO-OSM 300 ML IV SCH ×2 (01:18→12:50)
[2023-03-22 05:07] LABS: HEMATOCRIT 29.7 % (42-54); MEAN CORPUSCULAR HEMOGLOBIN 30.8 pg (27.0-33.0); MEAN CORPUSCULAR HGB CONC 32.7 g/dL (32.0-36.0); MEAN CORPUSCULAR VOLUME 94.3 fL (79-99); RED BLOOD CELL COUNT(AUTO) 3.15 MIL/uL (4.50-6.20); RED CELL DISTRIBUTION WIDTH 14.7 % (11.0-15.5); WHITE BLOOD COUNT (AUTO) 8.4 K/uL (4.8-10.8)
[2023-03-22 05:25] LABS: ALBUMIN 1.9 g/dL (3.5-5.0); CREATININE 1.1 mg/dL (0.5-1.5); POTASSIUM 3.3 mmol/L (3.5-5.1); TOTAL PROTEIN, SERUM 6.2 g/dL (6.0-8.3)
[2023-03-22] MEDS: 0.9%NACL 1000ML 1,000 ML IV SCH ×2 (05:59→10:23)
[2023-03-22] MEDS: POTASSIUM CHLORIDE 20MEQ/100ML 100 ML IV PRN (05:59)
[2023-03-22] MEDS: IPRATROPIUM/ALBUTEROL SULFATE 3 ML SOLUTION IH SCH ×3 (06:25→23:53)
[2023-03-22] MEDS: INSULIN HUMULIN R 100 UNIT/ML 3ML SQ SCH ×4 (06:25→21:58)
[2023-03-22] MEDS: ASPIRIN 81 MG EC TAB PO SCH (07:57)
[2023-03-22] MEDS: DILTIAZEM 120MG SR CAP PO SCH (09:00)
[2023-03-22] MEDS: SACUBITRIL/VALSARTAN 1 EACH TABLET PO SCH ×2 (09:00→20:45)
[2023-03-22] MEDS: MEROPENEM 1 GM VIAL IVPB SCH ×2 (09:30→16:18)
[2023-03-22] MEDS: FAMOTIDINE 20MG VIAL IV SCH (09:30)
[2023-03-22] MEDS: METOPROLOL SUCCINATE 50 MG TAB.SR.24H PO SCH (09:30)
[2023-03-22 09:38] LABS: INR 1.15 (0.85-1.15); PROTHROMBIN TIME 12.4 SEC (9.6-11.6)
[2023-03-22] MEDS ORDERED: PROPOFOL 10 MG/ML 20ML VIAL IV ONE (10:08)
[2023-03-22] MEDS: DOXYCYCLINE 100MG+NS 250ML IV SCH (12:50)
[2023-03-22] MEDS: ATORVASTATIN 20 MG TABLET PO SCH (20:45)
[2023-03-22] MEDS ORDERED: PHENAZOPYRIDINE HCL 200 MG TABLET PO PRN (23:00)
[2023-03-22] MEDS: TAMSULOSIN HCL 0.4 MG CAP.ER.24H PO SCH (23:10)
[2023-03-23] VITALS (7 sets, daily range): BP systolic 111–146; BP diastolic 60–74
[2023-03-23] MEDS ORDERED: METOPROLOL TARTRATE 1 MG/ML 5ML VIAL IV ONE (00:30)
[2023-03-23] MEDS ORDERED: DILTIAZEM 120MG SR CAP PO SCH (00:35)
[2023-03-23] MEDS: LINEZOLID 600 MG/ISO-OSM 300 ML IV SCH ×3 (00:38→23:43)
[2023-03-23] MEDS: DOXYCYCLINE 100MG+NS 250ML IV SCH ×3 (00:38→22:37)
[2023-03-23] MEDS: MEROPENEM 1 GM VIAL IVPB SCH ×3 (00:55→16:23)
[2023-03-23] MEDS: 0.9%NACL 1000ML 1,000 ML IV SCH ×2 (03:00→13:17)
[2023-03-23 05:39] LABS: BASOPHILS % (AUTO) 0.2 % (0.0-5.0); EOSINOPHILS % (AUTO) 0.2 % (0.0-8.0); HEMATOCRIT 30.4 % (42-54); LYMPHOCYTES % (AUTO) 12.1 % (21.0-51.0); MEAN CORPUSCULAR HEMOGLOBIN 30.7 pg (27.0-33.0); MEAN CORPUSCULAR HGB CONC 32.9 g/dL (32.0-36.0); MEAN CORPUSCULAR VOLUME 93.3 fL (79-99); MONOCYTES % (AUTO) 6.7 % (3.0-13.0); NEUTROPHILS % (AUTO) 80.2 % (40.0-77.0); PLATELET COUNT (AUTO) 321 K/uL (130-400); RED BLOOD CELL COUNT(AUTO) 3.26 MIL/uL (4.50-6.20); RED CELL DISTRIBUTION WIDTH 14.6 % (11.0-15.5); WHITE BLOOD COUNT (AUTO) 9.1 K/uL (4.8-10.8)
[2023-03-23 06:14] LABS: ALBUMIN 1.7 g/dL (3.5-5.0); POTASSIUM 3.1 mmol/L (3.5-5.1)
[2023-03-23] MEDS: INSULIN HUMULIN R 100 UNIT/ML 3ML SQ SCH ×4 (06:27→20:32)
[2023-03-23] MEDS: POTASSIUM CHLORIDE 10% ELIXIR 20 MEQ/15 ML UDCUP PO PRN ×3 (06:28→13:17)
[2023-03-23] MEDS: IPRATROPIUM/ALBUTEROL SULFATE 3 ML SOLUTION IH SCH ×2 (06:43→11:05)
[2023-03-23] MEDS: METOPROLOL SUCCINATE 50 MG TAB.SR.24H PO SCH (09:30)
[2023-03-23] MEDS: DILTIAZEM 120MG SR CAP PO SCH (09:30)
[2023-03-23] MEDS: SACUBITRIL/VALSARTAN 1 EACH TABLET PO SCH ×2 (09:30→20:27)
[2023-03-23] MEDS: FAMOTIDINE 20MG VIAL IV SCH (09:31)
[2023-03-23] MEDS: TAMSULOSIN HCL 0.4 MG CAP.ER.24H PO SCH (09:31)
[2023-03-23] MEDS: IPRATROPIUM 0.5 MG/2.5 ML INH IH SCH ×2 (18:58→23:16)
[2023-03-23] MEDS: ATORVASTATIN 20 MG TABLET PO SCH (20:27)
[2023-03-24] MEDS: MEROPENEM 1 GM VIAL IVPB SCH ×4 (00:26→23:45)
[2023-03-24 04:00] VITALS: BP 128/69
[2023-03-24 04:41] LABS: HEMATOCRIT 28.7 % (42-54); MEAN CORPUSCULAR HEMOGLOBIN 30.3 pg (27.0-33.0); MEAN CORPUSCULAR HGB CONC 32.8 g/dL (32.0-36.0); MEAN CORPUSCULAR VOLUME 92.6 fL (79-99); RED BLOOD CELL COUNT(AUTO) 3.1 MIL/uL (4.50-6.20); RED CELL DISTRIBUTION WIDTH 14.6 % (11.0-15.5); WHITE BLOOD COUNT (AUTO) 9.5 K/uL (4.8-10.8)
[2023-03-24 04:57] LABS: CREATININE 1.1 mg/dL (0.5-1.5); MAGNESIUM 1.7 mg/dL (1.80-2.40)
[2023-03-24 05:02] LABS: POTASSIUM 2.9 mmol/L (3.5-5.1)
[2023-03-24] MEDS: POTASSIUM CHLORIDE 20MEQ/100ML 100 ML IV PRN ×3 (05:42→23:44)
[2023-03-24] MEDS: INSULIN HUMULIN R 100 UNIT/ML 3ML SQ SCH ×4 (05:51→21:09)
[2023-03-24] MEDS: IPRATROPIUM 0.5 MG/2.5 ML INH IH SCH ×4 (06:19→23:18)
[2023-03-24 08:00] VITALS: BP 137/68
[2023-03-24] MEDS: POTASSIUM CHLORIDE 10MEQ SR TAB PO SCH ×2 (09:30→21:09)
[2023-03-24] MEDS: TAMSULOSIN HCL 0.4 MG CAP.ER.24H PO SCH (11:36)
[2023-03-24] MEDS: METOPROLOL SUCCINATE 50 MG TAB.SR.24H PO SCH (11:37)
[2023-03-24] MEDS: SACUBITRIL/VALSARTAN 1 EACH TABLET PO SCH ×2 (11:37→21:09)
[2023-03-24] MEDS: ENOXAPARIN SODIUM 40 MG/0.4 ML SYRINGE SQ SCH ×2 (11:37→21:09)
[2023-03-24] MEDS: DILTIAZEM 120MG SR CAP PO SCH (11:37)
[2023-03-24] MEDS: FAMOTIDINE 20MG VIAL IV SCH (11:38)
[2023-03-24] MEDS: LINEZOLID 600 MG/ISO-OSM 300 ML IV SCH (11:38)
[2023-03-24] MEDS: DOXYCYCLINE 100MG+NS 250ML IV SCH (11:38)
[2023-03-24 12:00] VITALS: BP_SYST 130; BP_SYST 135; BP_DIAS 65; BP_DIAS 77
[2023-03-24] MEDS ORDERED: FUROSEMIDE 20MG VIAL IV ONE (14:30)
[2023-03-24 16:00] VITALS: BP 121/63
[2023-03-24] MEDS: FUROSEMIDE 40MG VIAL IV SCH (16:45)
[2023-03-24 20:00] VITALS: BP 133/76
[2023-03-24] MEDS: ATORVASTATIN 20 MG TABLET PO SCH (21:09)
[2023-03-25] VITALS: BP 120/65
[2023-03-25] MEDS: DOXYCYCLINE 100MG+NS 250ML IV SCH ×2 (00:33→12:51)
[2023-03-25] MEDS: LINEZOLID 600 MG/ISO-OSM 300 ML IV SCH ×2 (01:23→12:50)
[2023-03-25] MEDS: MAGNESIUM 2GM PREMIX 50ML 50 ML IV SCH (02:42)
[2023-03-25 04:00] VITALS: BP 119/61
[2023-03-25] MEDS: POTASSIUM CHLORIDE 20MEQ/100ML 100 ML IV PRN (05:12)
[2023-03-25 06:23] LABS: CREATININE 1.2 mg/dL (0.5-1.5); POTASSIUM 3.2 mmol/L (3.5-5.1)
[2023-03-25] MEDS: INSULIN HUMULIN R 100 UNIT/ML 3ML SQ SCH ×4 (06:27→20:46)
[2023-03-25] MEDS: IPRATROPIUM 0.5 MG/2.5 ML INH IH SCH ×4 (06:53→23:34)
[2023-03-25 08:00] VITALS: BP 120/64
[2023-03-25] MEDS: FUROSEMIDE 40MG VIAL IV SCH (08:30)
[2023-03-25] MEDS: FAMOTIDINE 20MG VIAL IV SCH (08:30)
[2023-03-25] MEDS: MEROPENEM 1 GM VIAL IVPB SCH (08:32)
[2023-03-25] MEDS: ENOXAPARIN SODIUM 40 MG/0.4 ML SYRINGE SQ SCH ×2 (08:32→20:56)
[2023-03-25] MEDS: DILTIAZEM 120MG SR CAP PO SCH (08:33)
[2023-03-25] MEDS: METOPROLOL SUCCINATE 50 MG TAB.SR.24H PO SCH (08:33)
[2023-03-25] MEDS: TAMSULOSIN HCL 0.4 MG CAP.ER.24H PO SCH (08:34)
[2023-03-25] MEDS: POTASSIUM CHLORIDE 10MEQ SR TAB PO SCH ×2 (08:34→20:56)
[2023-03-25] MEDS: SACUBITRIL/VALSARTAN 1 EACH TABLET PO SCH ×2 (08:34→20:55)
[2023-03-25 12:00] VITALS: BP 126/61
[2023-03-25 16:00] VITALS: BP 124/67
[2023-03-25] MEDS: CEFTRIAXONE 2GM VIAL IVPB SCH (16:49)
[2023-03-25 20:00] VITALS: BP 143/65
[2023-03-25] MEDS: ATORVASTATIN 20 MG TABLET PO SCH (20:56)
[2023-03-26] VITALS: BP 150/75
[2023-03-26 03:32] LABS: MEAN CORPUSCULAR HEMOGLOBIN 30.9 pg (27.0-33.0); MEAN CORPUSCULAR HGB CONC 33.6 g/dL (32.0-36.0); MEAN CORPUSCULAR VOLUME 92.1 fL (79-99); RED BLOOD CELL COUNT(AUTO) 3.04 MIL/uL (4.50-6.20); RED CELL DISTRIBUTION WIDTH 14.6 % (11.0-15.5)
[2023-03-26 03:56] VITALS: BP 140/68
[2023-03-26 04:00] LABS: ALBUMIN 1.7 g/dL (3.5-5.0); CREATININE 1.1 mg/dL (0.5-1.5); POTASSIUM 3.1 mmol/L (3.5-5.1); TOTAL PROTEIN, SERUM 6.1 g/dL (6.0-8.3)
[2023-03-26] MEDS: POTASSIUM CHLORIDE 20MEQ/100ML 100 ML IV PRN ×2 (04:10→06:55)
[2023-03-26] MEDS: INSULIN HUMULIN R 100 UNIT/ML 3ML SQ SCH ×4 (06:34→21:00)
[2023-03-26] MEDS: IPRATROPIUM 0.5 MG/2.5 ML INH IH SCH ×4 (06:40→23:15)
[2023-03-26 08:00] VITALS: BP 125/61
[2023-03-26] MEDS: FUROSEMIDE 40MG VIAL IV SCH (10:34)
[2023-03-26] MEDS: TAMSULOSIN HCL 0.4 MG CAP.ER.24H PO SCH (10:34)
[2023-03-26] MEDS: FAMOTIDINE 20MG VIAL IV SCH (10:34)
[2023-03-26] MEDS: DILTIAZEM 120MG SR CAP PO SCH (10:34)
[2023-03-26] MEDS: POTASSIUM CHLORIDE 10MEQ SR TAB PO SCH ×2 (10:35→20:46)
[2023-03-26] MEDS: SACUBITRIL/VALSARTAN 1 EACH TABLET PO SCH ×2 (10:35→20:45)
[2023-03-26] MEDS: METOPROLOL SUCCINATE 50 MG TAB.SR.24H PO SCH (10:35)
[2023-03-26] MEDS: ENOXAPARIN SODIUM 40 MG/0.4 ML SYRINGE SQ SCH ×2 (10:35→20:49)
[2023-03-26 12:00] VITALS: BP 114/51
[2023-03-26 16:00] VITALS: BP 127/58
[2023-03-26] MEDS: CEFTRIAXONE 2GM VIAL IVPB SCH (16:32)
[2023-03-26] MEDS: ATORVASTATIN 20 MG TABLET PO SCH (20:48)
[2023-03-26 21:02] VITALS: BP 121/61
[2023-03-27] VITALS: BP 125/60
[2023-03-27 04:00] VITALS: BP 135/75
[2023-03-27] MEDS: IPRATROPIUM 0.5 MG/2.5 ML INH IH SCH ×4 (06:23→23:25)
[2023-03-27] MEDS: INSULIN HUMULIN R 100 UNIT/ML 3ML SQ SCH ×4 (06:54→19:45)
[2023-03-27 08:00] VITALS: BP 127/65
[2023-03-27] MEDS: ENOXAPARIN SODIUM 40 MG/0.4 ML SYRINGE SQ SCH (10:03)
[2023-03-27] MEDS: TAMSULOSIN HCL 0.4 MG CAP.ER.24H PO SCH (10:04)
[2023-03-27] MEDS: METOPROLOL SUCCINATE 50 MG TAB.SR.24H PO SCH (10:05)
[2023-03-27] MEDS: POTASSIUM CHLORIDE 10MEQ SR TAB PO SCH ×2 (10:05→19:44)
[2023-03-27] MEDS: SACUBITRIL/VALSARTAN 1 EACH TABLET PO SCH ×2 (10:06→19:44)
[2023-03-27] MEDS: DILTIAZEM 120MG SR CAP PO SCH (10:06)
[2023-03-27] MEDS: FAMOTIDINE 20MG VIAL IV SCH (10:06)
[2023-03-27] MEDS: FUROSEMIDE 40MG VIAL IV SCH (10:09)
[2023-03-27 12:00] VITALS: BP 128/64
[2023-03-27] MEDS ORDERED: VANCOMYCIN KIT 1 GM/250 ML IV.KIT IV ONE (13:00)
[2023-03-27 16:00] VITALS: BP 140/77
[2023-03-27] MEDS: CEFTRIAXONE 2GM VIAL IVPB SCH (16:09)
[2023-03-27] MEDS: ATORVASTATIN 20 MG TABLET PO SCH (19:44)
[2023-03-27 20:00] VITALS: BP 121/75
[2023-03-28] VITALS (16 sets, daily range): BP systolic 101–161; BP diastolic 54–78
[2023-03-28 05:44] LABS: CREATININE 0.9 mg/dL (0.5-1.5); MAGNESIUM 1.7 mg/dL (1.80-2.40); POTASSIUM 4.3 mmol/L (3.5-5.1)
[2023-03-28] MEDS: INSULIN HUMULIN R 100 UNIT/ML 3ML SQ SCH ×4 (06:20→20:15)
[2023-03-28] MEDS: IPRATROPIUM 0.5 MG/2.5 ML INH IH SCH ×4 (06:31→23:48)
[2023-03-28] MEDS: MAGNESIUM 2GM PREMIX 50ML 50 ML IV SCH (06:45)
[2023-03-28 07:09] LABS: HEMATOCRIT 29.9 % (42-54); MEAN CORPUSCULAR HEMOGLOBIN 30.8 pg (27.0-33.0); MEAN CORPUSCULAR HGB CONC 32.8 g/dL (32.0-36.0); RED BLOOD CELL COUNT(AUTO) 3.18 MIL/uL (4.50-6.20); RED CELL DISTRIBUTION WIDTH 14.8 % (11.0-15.5); WHITE BLOOD COUNT (AUTO) 9.1 K/uL (4.8-10.8)
[2023-03-28] MEDS: SACUBITRIL/VALSARTAN 1 EACH TABLET PO SCH ×3 (09:00→20:00)
[2023-03-28] MEDS: POTASSIUM CHLORIDE 10MEQ SR TAB PO SCH ×3 (09:00→20:00)
[2023-03-28] MEDS: TAMSULOSIN HCL 0.4 MG CAP.ER.24H PO SCH (09:00)
[2023-03-28] MEDS: DILTIAZEM 120MG SR CAP PO SCH (09:00)
[2023-03-28] MEDS: FUROSEMIDE 40MG VIAL IV SCH (09:48)
[2023-03-28] MEDS: FAMOTIDINE 20MG VIAL IV SCH (09:49)
[2023-03-28] MEDS: METOPROLOL SUCCINATE 50 MG TAB.SR.24H PO SCH (09:49)
[2023-03-28] MEDS ORDERED: LIDOCAINE HCL 1% MDV 50ML VIAL ONE ×2 (11:55→15:08)
[2023-03-28] MEDS ORDERED: MEPERIDINE-PF 25 MG/ML SYG ONE ×3 (11:55→16:08)
[2023-03-28] MEDS ORDERED: MIDAZOLAM HCL 1 MG/ML 2ML VIAL ONE ×3 (11:55→16:08)
[2023-03-28] MEDS ORDERED: VANCOMYCIN 1G/250ML KIT 500 ML IV ONE (11:56)
[2023-03-28] MEDS ORDERED: BUPIVACAINE/PF 0.25% 10ML VIAL IJ ONE ×2 (11:56→15:08)
[2023-03-28] MEDS: CEFTRIAXONE 2GM VIAL IVPB SCH (16:00)
[2023-03-28] MEDS ORDERED: BACITRACIN 1 EACH PACKET TP ONE (17:02)
[2023-03-28] MEDS ORDERED: VANCOMYCIN KIT 1 GM/250 ML IV.KIT IV ONE (17:30)
[2023-03-28] MEDS ORDERED: ACETAMINOPHEN WITH CODEINE 1 TAB TAB PO PRN (17:30)
[2023-03-28] MEDS ORDERED: ACETAMINOPHEN 500 MG TABLET PO PRN (17:30)
[2023-03-28] MEDS: DRONEDARONE HYDROCHLORIDE 400 MG TABLET PO SCH ×2 (19:55→20:01)
[2023-03-28] MEDS: ATORVASTATIN 20 MG TABLET PO SCH ×2 (19:55→20:01)
[2023-03-29] VITALS (7 sets, daily range): BP systolic 111–153; BP diastolic 58–82
[2023-03-29 06:10] LABS: BASOPHILS % (AUTO) 0.2 % (0.0-5.0); EOSINOPHILS % (AUTO) 0.9 % (0.0-8.0); HEMATOCRIT 31.3 % (42-54); LYMPHOCYTES % (AUTO) 12.8 % (21.0-51.0); MEAN CORPUSCULAR HEMOGLOBIN 30.7 pg (27.0-33.0); MEAN CORPUSCULAR HGB CONC 32.3 g/dL (32.0-36.0); MEAN CORPUSCULAR VOLUME 95.1 fL (79-99); MONOCYTES % (AUTO) 11.3 % (3.0-13.0); NEUTROPHILS % (AUTO) 74.4 % (40.0-77.0); PLATELET COUNT (AUTO) 241 K/uL (130-400); RED BLOOD CELL COUNT(AUTO) 3.29 MIL/uL (4.50-6.20); RED CELL DISTRIBUTION WIDTH 14.6 % (11.0-15.5); WHITE BLOOD COUNT (AUTO) 9.9 K/uL (4.8-10.8)
[2023-03-29] MEDS: INSULIN HUMULIN R 100 UNIT/ML 3ML SQ SCH ×4 (06:16→22:14)
[2023-03-29 06:32] LABS: ALBUMIN 1.7 g/dL (3.5-5.0); POTASSIUM 3.5 mmol/L (3.5-5.1); TOTAL PROTEIN, SERUM 6.4 g/dL (6.0-8.3)
[2023-03-29] MEDS: IPRATROPIUM 0.5 MG/2.5 ML INH IH SCH ×3 (06:32→19:01)
[2023-03-29] MEDS ORDERED: KCL 20 MEQ ERTAB PO SCH (08:30)
[2023-03-29] MEDS: METOPROLOL SUCCINATE 25 MG TAB.SR.24H PO SCH (08:50)
[2023-03-29] MEDS: DILTIAZEM 120MG SR CAP PO SCH (08:51)
[2023-03-29] MEDS: SACUBITRIL/VALSARTAN 1 EACH TABLET PO SCH ×2 (08:51→22:12)
[2023-03-29] MEDS: TAMSULOSIN HCL 0.4 MG CAP.ER.24H PO SCH (08:51)
[2023-03-29] MEDS: POTASSIUM CHLORIDE 10MEQ SR TAB PO SCH ×2 (08:51→22:12)
[2023-03-29] MEDS: FUROSEMIDE 40MG VIAL IV SCH (08:51)
[2023-03-29] MEDS: FAMOTIDINE 20MG VIAL IV SCH (08:51)
[2023-03-29] MEDS: DRONEDARONE HYDROCHLORIDE 400 MG TABLET PO SCH ×2 (08:51→22:12)
[2023-03-29] MEDS: CEFTRIAXONE 2GM VIAL IVPB SCH (16:31)
[2023-03-29] MEDS: ATORVASTATIN 20 MG TABLET PO SCH (22:12)
[2023-03-30] VITALS (16 sets, daily range): BP systolic 112–155; BP diastolic 57–88
[2023-03-30] MEDS: IPRATROPIUM 0.5 MG/2.5 ML INH IH SCH ×5 (00:20→23:59)
[2023-03-30 05:26] LABS: BASOPHILS % (AUTO) 0.3 % (0.0-5.0); HEMATOCRIT 27.2 % (42-54); LYMPHOCYTES % (AUTO) 17.8 % (21.0-51.0); MEAN CORPUSCULAR HEMOGLOBIN 30.9 pg (27.0-33.0); MEAN CORPUSCULAR HGB CONC 33.1 g/dL (32.0-36.0); MEAN CORPUSCULAR VOLUME 93.5 fL (79-99); MONOCYTES % (AUTO) 11.5 % (3.0-13.0); NEUTROPHILS % (AUTO) 68.6 % (40.0-77.0); PLATELET COUNT (AUTO) 258 K/uL (130-400); RED BLOOD CELL COUNT(AUTO) 2.91 MIL/uL (4.50-6.20); RED CELL DISTRIBUTION WIDTH 14.6 % (11.0-15.5); WHITE BLOOD COUNT (AUTO) 9.1 K/uL (4.8-10.8)
[2023-03-30] MEDS: INSULIN HUMULIN R 100 UNIT/ML 3ML SQ SCH ×4 (05:36→21:44)
[2023-03-30 05:53] LABS: ALBUMIN 1.6 g/dL (3.5-5.0); CREATININE 1.1 mg/dL (0.5-1.5); POTASSIUM 3.4 mmol/L (3.5-5.1); TOTAL PROTEIN, SERUM 6.1 g/dL (6.0-8.3)
[2023-03-30] MEDS: TAMSULOSIN HCL 0.4 MG CAP.ER.24H PO SCH (08:09)
[2023-03-30] MEDS: POTASSIUM CHLORIDE 10MEQ SR TAB PO SCH ×2 (08:09→21:41)
[2023-03-30] MEDS: DRONEDARONE HYDROCHLORIDE 400 MG TABLET PO SCH ×2 (08:11→21:41)
[2023-03-30] MEDS ORDERED: KCL 20 MEQ ERTAB PO SCH (08:30)
[2023-03-30] MEDS ORDERED: MEPERIDINE-PF 25 MG/ML SYG ONE ×2 (08:47→09:35)
[2023-03-30] MEDS ORDERED: LIDOCAINE HCL 1% MDV 50ML VIAL ONE (08:47)
[2023-03-30] MEDS ORDERED: VANCOMYCIN 1G/250ML KIT 500 ML IV ONE (08:47)
[2023-03-30] MEDS ORDERED: BUPIVACAINE/PF 0.25% 10ML VIAL IJ ONE (08:48)
[2023-03-30] MEDS ORDERED: MIDAZOLAM HCL 1 MG/ML 2ML VIAL ONE ×2 (08:48→09:35)
[2023-03-30] MEDS ORDERED: IOHEXOL-350 50ML VIAL IV ONE (08:48)
[2023-03-30] MEDS: SACUBITRIL/VALSARTAN 1 EACH TABLET PO SCH ×2 (08:50→21:41)
[2023-03-30] MEDS: DILTIAZEM 120MG SR CAP PO SCH (08:50)
[2023-03-30] MEDS: METOPROLOL SUCCINATE 25 MG TAB.SR.24H PO SCH ×2 (08:50→21:41)
[2023-03-30] MEDS: FUROSEMIDE 40MG VIAL IV SCH (09:00)
[2023-03-30] MEDS ORDERED: BACITRACIN 1 EACH PACKET TP ONE (09:52)
[2023-03-30] MEDS: FAMOTIDINE 20MG VIAL IV SCH (11:15)
[2023-03-30] MEDS: CEFTRIAXONE 2GM VIAL IVPB SCH (16:36)
[2023-03-30] MEDS: ATORVASTATIN 20 MG TABLET PO SCH (21:41)
[2023-03-31 03:42] VITALS: BP 131/67
[2023-03-31 06:13] LABS: BASOPHILS % (AUTO) 0.4 % (0.0-5.0); EOSINOPHILS % (AUTO) 1.6 % (0.0-8.0); HEMATOCRIT 28.5 % (42-54); LYMPHOCYTES % (AUTO) 14.1 % (21.0-51.0); MEAN CORPUSCULAR HEMOGLOBIN 30.2 pg (27.0-33.0); MEAN CORPUSCULAR HGB CONC 31.9 g/dL (32.0-36.0); MEAN CORPUSCULAR VOLUME 94.7 fL (79-99); MONOCYTES % (AUTO) 9.1 % (3.0-13.0); NEUTROPHILS % (AUTO) 74.2 % (40.0-77.0); PLATELET COUNT (AUTO) 257 K/uL (130-400); RED BLOOD CELL COUNT(AUTO) 3.01 MIL/uL (4.50-6.20); RED CELL DISTRIBUTION WIDTH 14.4 % (11.0-15.5); WHITE BLOOD COUNT (AUTO) 8.2 K/uL (4.8-10.8)
[2023-03-31] MEDS: IPRATROPIUM 0.5 MG/2.5 ML INH IH SCH ×4 (06:43→23:30)
[2023-03-31 06:45] LABS: ALBUMIN 1.7 g/dL (3.5-5.0); CREATININE 0.9 mg/dL (0.5-1.5); MAGNESIUM 1.8 mg/dL (1.80-2.40); POTASSIUM 3.7 mmol/L (3.5-5.1); TOTAL PROTEIN, SERUM 6.4 g/dL (6.0-8.3)
[2023-03-31] MEDS: INSULIN HUMULIN R 100 UNIT/ML 3ML SQ SCH ×4 (07:31→22:12)
[2023-03-31 08:00] VITALS: BP 151/75
[2023-03-31] MEDS ORDERED: KCL 20 MEQ ERTAB PO ONE (09:30)
[2023-03-31] MEDS: SACUBITRIL/VALSARTAN 1 EACH TABLET PO SCH ×2 (09:51→22:11)
[2023-03-31] MEDS: TAMSULOSIN HCL 0.4 MG CAP.ER.24H PO SCH (09:51)
[2023-03-31] MEDS: METOPROLOL SUCCINATE 25 MG TAB.SR.24H PO SCH ×2 (09:52→22:11)
[2023-03-31] MEDS: POTASSIUM CHLORIDE 10MEQ SR TAB PO SCH ×2 (09:52→22:11)
[2023-03-31] MEDS: DILTIAZEM 120MG SR CAP PO SCH (09:52)
[2023-03-31] MEDS: FAMOTIDINE 20MG VIAL IV SCH (09:52)
[2023-03-31] MEDS: DRONEDARONE HYDROCHLORIDE 400 MG TABLET PO SCH ×2 (09:53→22:11)
[2023-03-31] MEDS: FUROSEMIDE 40MG VIAL IV SCH (09:53)
[2023-03-31] MEDS: MAGNESIUM 2GM PREMIX 50ML 50 ML IV SCH (09:56)
[2023-03-31 12:00] VITALS: BP 118/61
[2023-03-31 16:00] VITALS: BP 143/72
[2023-03-31] MEDS ORDERED: DRON400T7 PO (16:47)
[2023-03-31] MEDS ORDERED: DILT120C89 PO (16:47)
[2023-03-31] MEDS ORDERED: METO25TA3 PO (16:47)
[2023-03-31] MEDS ORDERED: FURO10VI4 IV (16:47)
[2023-03-31] MEDS ORDERED: TAMS-1 PO (16:47)
[2023-03-31] MEDS ORDERED: CEFT2VIA12 IVPB (16:47)
[2023-03-31] MEDS ORDERED: AEC81 PO (16:47)
[2023-03-31] MEDS: CEFTRIAXONE 2GM VIAL IVPB SCH (16:48)
[2023-03-31 20:00] VITALS: BP 149/66
[2023-03-31] MEDS: ATORVASTATIN 20 MG TABLET PO SCH (22:11)
[2023-04-01] VITALS: BP 129/68
[2023-04-01 04:00] VITALS: BP 146/63
[2023-04-01] MEDS: INSULIN HUMULIN R 100 UNIT/ML 3ML SQ SCH ×4 (06:42→21:02)
[2023-04-01] MEDS: IPRATROPIUM 0.5 MG/2.5 ML INH IH SCH (06:50)
[2023-04-01 08:00] VITALS: BP 145/68
[2023-04-01] MEDS ORDERED: IPRATROPIUM 0.5 MG/2.5 ML INH IH PRN (10:30)
[2023-04-01] MEDS: SACUBITRIL/VALSARTAN 1 EACH TABLET PO SCH ×2 (10:35→21:00)
[2023-04-01] MEDS: TAMSULOSIN HCL 0.4 MG CAP.ER.24H PO SCH (10:35)
[2023-04-01] MEDS: POTASSIUM CHLORIDE 10MEQ SR TAB PO SCH ×2 (10:35→21:00)
[2023-04-01] MEDS: METOPROLOL SUCCINATE 25 MG TAB.SR.24H PO SCH ×2 (10:35→21:00)
[2023-04-01] MEDS: DILTIAZEM 120MG SR CAP PO SCH (10:35)
[2023-04-01] MEDS: DRONEDARONE HYDROCHLORIDE 400 MG TABLET PO SCH ×2 (10:35→21:00)
[2023-04-01] MEDS: FAMOTIDINE 20MG VIAL IV SCH (10:35)
[2023-04-01] MEDS: FUROSEMIDE 40MG VIAL IV SCH (10:36)
[2023-04-01 12:00] VITALS: BP 150/69
[2023-04-01] MEDS: CEFTRIAXONE 2GM VIAL IVPB SCH (15:52)
[2023-04-01 17:49] VITALS: BP 136/87
[2023-04-01 20:00] VITALS: BP 146/66
[2023-04-01] MEDS: ATORVASTATIN 20 MG TABLET PO SCH (21:00)
[2023-04-01] MEDS: NYSTATIN 15 GM POWDER TP SCH (22:00)
[2023-04-02] VITALS: BP 132/65
[2023-04-02 04:00] VITALS: BP 135/61
[2023-04-02 04:43] LABS: BASOPHILS % (AUTO) 0.4 % (0.0-5.0); EOSINOPHILS % (AUTO) 2.9 % (0.0-8.0); HEMATOCRIT 28.4 % (42-54); LYMPHOCYTES % (AUTO) 18.3 % (21.0-51.0); MEAN CORPUSCULAR HEMOGLOBIN 29.6 pg (27.0-33.0); MEAN CORPUSCULAR HGB CONC 31.7 g/dL (32.0-36.0); MEAN CORPUSCULAR VOLUME 93.4 fL (79-99); NEUTROPHILS % (AUTO) 68.9 % (40.0-77.0); PLATELET COUNT (AUTO) 313 K/uL (130-400); RED BLOOD CELL COUNT(AUTO) 3.04 MIL/uL (4.50-6.20); RED CELL DISTRIBUTION WIDTH 14.6 % (11.0-15.5); WHITE BLOOD COUNT (AUTO) 7.6 K/uL (4.8-10.8)
[2023-04-02 04:56] LABS: ALBUMIN 1.7 g/dL (3.5-5.0); CREATININE 1.1 mg/dL (0.5-1.5); MAGNESIUM 1.7 mg/dL (1.80-2.40); POTASSIUM 3.8 mmol/L (3.5-5.1); TOTAL PROTEIN, SERUM 6.5 g/dL (6.0-8.3)
[2023-04-02] MEDS: INSULIN HUMULIN R 100 UNIT/ML 3ML SQ SCH ×4 (06:08→21:11)
[2023-04-02 08:00] VITALS: BP 125/63
[2023-04-02] MEDS: FUROSEMIDE 40MG VIAL IV SCH (09:07)
[2023-04-02] MEDS: DILTIAZEM 120MG SR CAP PO SCH (09:07)
[2023-04-02] MEDS: SACUBITRIL/VALSARTAN 1 EACH TABLET PO SCH ×2 (09:07→20:57)
[2023-04-02] MEDS: DRONEDARONE HYDROCHLORIDE 400 MG TABLET PO SCH ×2 (09:07→21:04)
[2023-04-02] MEDS: METOPROLOL SUCCINATE 25 MG TAB.SR.24H PO SCH ×2 (09:07→21:00)
[2023-04-02] MEDS: TAMSULOSIN HCL 0.4 MG CAP.ER.24H PO SCH (09:07)
[2023-04-02] MEDS: FAMOTIDINE 20MG VIAL IV SCH (09:07)
[2023-04-02] MEDS: POTASSIUM CHLORIDE 10MEQ SR TAB PO SCH ×2 (09:08→21:05)
[2023-04-02] MEDS: NYSTATIN 15 GM POWDER TP SCH ×3 (09:13→21:12)
[2023-04-02 12:00] VITALS: BP 90/46
[2023-04-02] MEDS: CEFTRIAXONE 2GM VIAL IVPB SCH (16:12)
[2023-04-02 17:25] VITALS: BP 126/66
[2023-04-02] MEDS: MAGNESIUM 2GM PREMIX 50ML 50 ML IV SCH (18:12)
[2023-04-02 20:00] VITALS: BP 108/54
[2023-04-02] MEDS: ATORVASTATIN 20 MG TABLET PO SCH (21:05)
[2023-04-03] VITALS (7 sets, daily range): BP systolic 109–134; BP diastolic 44–66
[2023-04-03 05:04] LABS: BASOPHILS % (AUTO) 0.3 % (0.0-5.0); EOSINOPHILS % (AUTO) 2.6 % (0.0-8.0); HEMATOCRIT 27.9 % (42-54); LYMPHOCYTES % (AUTO) 16.3 % (21.0-51.0); MEAN CORPUSCULAR HGB CONC 31.9 g/dL (32.0-36.0); MEAN CORPUSCULAR VOLUME 93.9 fL (79-99); MONOCYTES % (AUTO) 10.1 % (3.0-13.0); NEUTROPHILS % (AUTO) 70.2 % (40.0-77.0); PLATELET COUNT (AUTO) 308 K/uL (130-400); RED BLOOD CELL COUNT(AUTO) 2.97 MIL/uL (4.50-6.20); RED CELL DISTRIBUTION WIDTH 14.7 % (11.0-15.5); WHITE BLOOD COUNT (AUTO) 9.7 K/uL (4.8-10.8)
[2023-04-03 05:21] LABS: ALBUMIN 1.9 g/dL (3.5-5.0); CREATININE 1.2 mg/dL (0.5-1.5); MAGNESIUM 1.9 mg/dL (1.80-2.40); POTASSIUM 3.6 mmol/L (3.5-5.1); TOTAL PROTEIN, SERUM 6.7 g/dL (6.0-8.3)
[2023-04-03] MEDS: MAGNESIUM 2GM PREMIX 50ML 50 ML IV SCH (05:39)
[2023-04-03] MEDS: INSULIN HUMULIN R 100 UNIT/ML 3ML SQ SCH ×4 (06:03→21:58)
[2023-04-03] MEDS ORDERED: KCL 20 MEQ ERTAB PO ONE (09:00)
[2023-04-03] MEDS: METOPROLOL SUCCINATE 25 MG TAB.SR.24H PO SCH ×2 (09:07→21:55)
[2023-04-03] MEDS: DILTIAZEM 120MG SR CAP PO SCH (09:07)
[2023-04-03] MEDS: FUROSEMIDE 40MG VIAL IV SCH (09:08)
[2023-04-03] MEDS: DRONEDARONE HYDROCHLORIDE 400 MG TABLET PO SCH ×2 (09:08→21:55)
[2023-04-03] MEDS: TAMSULOSIN HCL 0.4 MG CAP.ER.24H PO SCH (09:08)
[2023-04-03] MEDS: POTASSIUM CHLORIDE 10MEQ SR TAB PO SCH ×2 (09:08→21:56)
[2023-04-03] MEDS: SACUBITRIL/VALSARTAN 1 EACH TABLET PO SCH ×2 (09:08→21:55)
[2023-04-03] MEDS: FAMOTIDINE 20MG VIAL IV SCH (09:08)
[2023-04-03] MEDS: NYSTATIN 15 GM POWDER TP SCH ×3 (10:47→21:58)
[2023-04-03] MEDS: CEFTRIAXONE 2GM VIAL IVPB SCH (17:14)
[2023-04-03] MEDS: ATORVASTATIN 20 MG TABLET PO SCH (21:55)
[2023-04-04 04:37] VITALS: BP 109/47
[2023-04-04 05:06] LABS: BASOPHILS % (AUTO) 0.3 % (0.0-5.0); EOSINOPHILS % (AUTO) 4.5 % (0.0-8.0); HEMATOCRIT 25.6 % (42-54); LYMPHOCYTES % (AUTO) 19.9 % (21.0-51.0); MEAN CORPUSCULAR HEMOGLOBIN 29.9 pg (27.0-33.0); MEAN CORPUSCULAR HGB CONC 31.6 g/dL (32.0-36.0); MEAN CORPUSCULAR VOLUME 94.5 fL (79-99); MONOCYTES % (AUTO) 9.6 % (3.0-13.0); NEUTROPHILS % (AUTO) 65.2 % (40.0-77.0); PLATELET COUNT (AUTO) 269 K/uL (130-400); RED BLOOD CELL COUNT(AUTO) 2.71 MIL/uL (4.50-6.20); RED CELL DISTRIBUTION WIDTH 14.7 % (11.0-15.5); WHITE BLOOD COUNT (AUTO) 7.7 K/uL (4.8-10.8)
[2023-04-04 05:16] LABS: ALBUMIN 1.8 g/dL (3.5-5.0); CREATININE 1.3 mg/dL (0.5-1.5); MAGNESIUM 2.2 mg/dL (1.80-2.40); POTASSIUM 3.5 mmol/L (3.5-5.1); TOTAL PROTEIN, SERUM 6.4 g/dL (6.0-8.3)
[2023-04-04] MEDS: INSULIN HUMULIN R 100 UNIT/ML 3ML SQ SCH ×4 (06:35→21:07)
[2023-04-04 08:00] VITALS: BP 119/51
[2023-04-04] MEDS: SACUBITRIL/VALSARTAN 1 EACH TABLET PO SCH ×2 (08:54→21:02)
[2023-04-04] MEDS: METOPROLOL SUCCINATE 25 MG TAB.SR.24H PO SCH ×2 (08:54→21:02)
[2023-04-04] MEDS: DRONEDARONE HYDROCHLORIDE 400 MG TABLET PO SCH ×2 (08:54→21:02)
[2023-04-04] MEDS: DILTIAZEM 120MG SR CAP PO SCH (08:54)
[2023-04-04] MEDS: TAMSULOSIN HCL 0.4 MG CAP.ER.24H PO SCH (08:54)
[2023-04-04] MEDS: NYSTATIN 15 GM POWDER TP SCH ×3 (08:55→21:04)
[2023-04-04] MEDS: FAMOTIDINE 20MG VIAL IV SCH (08:55)
[2023-04-04] MEDS: POTASSIUM CHLORIDE 10MEQ SR TAB PO SCH ×2 (08:55→21:04)
[2023-04-04] MEDS: FUROSEMIDE 40MG VIAL IV SCH (08:55)
[2023-04-04 11:13] VITALS: BP 112/55
[2023-04-04] MEDS: KCL 20 MEQ ERTAB PO PRN ×2 (11:44→14:54)
[2023-04-04] MEDS ORDERED: NYSTPW TP (12:07)
[2023-04-04 16:00] VITALS: BP 109/49
[2023-04-04] MEDS: CEFTRIAXONE 2GM VIAL IVPB SCH (16:55)
[2023-04-04 19:58] VITALS: BP 120/55
[2023-04-04] MEDS: ATORVASTATIN 20 MG TABLET PO SCH (21:02)
[2023-04-04 23:50] VITALS: BP 106/52
[2023-04-05 03:47] VITALS: BP 124/59
[2023-04-05 05:27] LABS: BASOPHILS % (AUTO) 0.5 % (0.0-5.0); EOSINOPHILS % (AUTO) 3.2 % (0.0-8.0); HEMATOCRIT 28.5 % (42-54); MEAN CORPUSCULAR HEMOGLOBIN 30.1 pg (27.0-33.0); MEAN CORPUSCULAR HGB CONC 31.6 g/dL (32.0-36.0); MEAN CORPUSCULAR VOLUME 95.3 fL (79-99); MONOCYTES % (AUTO) 8.3 % (3.0-13.0); NEUTROPHILS % (AUTO) 69.5 % (40.0-77.0); PLATELET COUNT (AUTO) 301 K/uL (130-400); RED BLOOD CELL COUNT(AUTO) 2.99 MIL/uL (4.50-6.20); RED CELL DISTRIBUTION WIDTH 14.6 % (11.0-15.5); WHITE BLOOD COUNT (AUTO) 8.1 K/uL (4.8-10.8)
[2023-04-05] MEDS: INSULIN HUMULIN R 100 UNIT/ML 3ML SQ SCH ×3 (05:27→17:24)
[2023-04-05 05:41] LABS: CREATININE 1.2 mg/dL (0.5-1.5); MAGNESIUM 1.9 mg/dL (1.80-2.40); TOTAL PROTEIN, SERUM 6.7 g/dL (6.0-8.3)
[2023-04-05 07:33] VITALS: BP 129/64
[2023-04-05] MEDS: FAMOTIDINE 20MG VIAL IV SCH (08:55)
[2023-04-05] MEDS: METOPROLOL SUCCINATE 25 MG TAB.SR.24H PO SCH (08:56)
[2023-04-05] MEDS: SACUBITRIL/VALSARTAN 1 EACH TABLET PO SCH (08:56)
[2023-04-05] MEDS: DILTIAZEM 120MG SR CAP PO SCH (08:56)
[2023-04-05] MEDS: FUROSEMIDE 40MG VIAL IV SCH (08:56)
[2023-04-05] MEDS: DRONEDARONE HYDROCHLORIDE 400 MG TABLET PO SCH (08:56)
[2023-04-05] MEDS: TAMSULOSIN HCL 0.4 MG CAP.ER.24H PO SCH (08:56)
[2023-04-05] MEDS: POTASSIUM CHLORIDE 10MEQ SR TAB PO SCH (08:57)
[2023-04-05] MEDS: NYSTATIN 15 GM POWDER TP SCH ×2 (08:57→14:31)
[2023-04-05 11:08] VITALS: BP 106/51
[2023-04-05 16:14] VITALS: BP 116/55
[2023-04-05] MEDS: CEFTRIAXONE 2GM VIAL IVPB SCH (17:18)
[2023-04-06] MEDS ORDERED: RIVAROXABAN 2.5 MG TABLET PO SCH (09:00)
== END 2023-04-05 18:45 | DRG 853 ==
LOC: EDH 16:34 → EDHIP 18:22 → OBSVTOIN 18:22 → 4BH 03-11 02:20 → 4CH 03-13 00:06 → 4DH 04-04 13:34
PROVIDERS: ADMIT Internal Medicine; ATTEND Internal Medicine
PROC: 4B02XSZ Measurement of Cardiac Pacemaker, External Approach (ICD-10-PCS; 2023-03-12)
PROC: 02HV33Z Insertion of Infusion Device into Superior Vena Cava, Percutaneous Approach (ICD-10-PCS; 2023-03-15)
PROC: 0DBP8ZX Excision of Rectum, Via Natural or Artificial Opening Endoscopic, Diagnostic (ICD-10-PCS; 2023-03-22)
PROC: 0JH608Z Insertion of Defibrillator Generator into Chest Subcutaneous Tissue and Fascia, Open Approach (ICD-10-PCS; principal; 2023-03-28)
PROC: 0JPT0PZ Removal of Cardiac Rhythm Related Device from Trunk Subcutaneous Tissue and Fascia, Open Approach (ICD-10-PCS; 2023-03-28)
PROC: 5A2204Z Restoration of Cardiac Rhythm, Single (ICD-10-PCS; 2023-03-30)
PROC: 02HL3JZ Insertion of Pacemaker Lead into Left Ventricle, Percutaneous Approach (ICD-10-PCS; 2023-03-30)
DX: A40.8 Other streptococcal sepsis (principal); I50.33 Acute on chronic diastolic (congestive) heart failure; J69.0 Pneumonitis due to inhalation of food and vomit; N17.0 Acute kidney failure with tubular necrosis; I44.2 Atrioventricular block, complete; I47.20 Ventricular tachycardia, unspecified; I48.92 Unspecified atrial flutter; T82.191A Other mechanical complication of cardiac pulse generator (battery), initial encounter; L03.116 Cellulitis of left lower limb; I13.0 Hypertensive heart and chronic kidney disease with heart failure and stage 1 through stage 4 chronic kidney disease, or unspecified chronic kidney disease; Z20.822 Contact with and (suspected) exposure to COVID-19; R65.20 Severe sepsis without septic shock; I27.20 Pulmonary hypertension, unspecified; Y71.2 Prosthetic and other implants, materials and accessory cardiovascular devices associated with adverse incidents; E11.22 Type 2 diabetes mellitus with diabetic chronic kidney disease; N18.32 Chronic kidney disease, stage 3b; E11.51 Type 2 diabetes mellitus with diabetic peripheral angiopathy without gangrene; E78.00 Pure hypercholesterolemia, unspecified; E87.6 Hypokalemia; I25.10 Atherosclerotic heart disease of native coronary artery without angina pectoris; I25.5 Ischemic cardiomyopathy; K80.20 Calculus of gallbladder without cholecystitis without obstruction; Z95.810 Presence of automatic (implantable) cardiac defibrillator; Y83.8 Other surgical procedures as the cause of abnormal reaction of the patient, or of later complication, without mention of misadventure at the time of the procedure; Y92.89 Other specified places as the place of occurrence of the external cause
CPT/HCPCS: 33226; 33263; 36415; 36569; 45331; 70450; 71045; 71250; 74176; 74230; 80048; 80053; 81001; 82948; 83605; 83735; 83880; 84132; 84145; 84484; 85025; 85027; 85610; 85730; 86304; 87040; 87071; 87077; 87088; 87186; 87205; 87635; 87804; 92526; 92610; 92611; 93005; 93306; 93925; 93970; 94640; 94667; 94668; 97039; 99156; 99157; A4606; C1894; C9803; G0378; J0360; J0696; J1644; J1650; J1815; J1940; J2020; J2060; J2175; J2185; J2250; J2543; J2704; J3010; J3370; J3475; J3480; J3490; J7030; Q9967